=== PATIENT | female | born 1945 | race Caucasian/White ===

== ENCOUNTER 2018-03-17 12:16 | Observation (INO) ==
[2018-03-17] MEDS ORDERED: Aspirin 81 MG TAB.CHEW PO ONE (12:33)
[2018-03-17] MEDS: Nitroglycerin 0.4 MG TAB.SUBL SL ONE ×2 (13:06→13:49)
[2018-03-17 13:07] LABS: Basophils % 0.7 %; Eosinophils # 0.2 K/mcL (0.0-0.6); Hematocrit 43.3 % (35.3-44.9); Hemoglobin 15.1 g/dL (11.5-15.4); Immature Granulocytes % 0.2 % (0-4); Lymphocytes # 1.6 K/mcL (0.6-4.6); Lymphocytes % 29.1 %; Mean Corpuscular HGB Conc 34.9 g/dL (31.6-35.5); Mean Corpuscular Hemoglobin 32.2 pg (28.0-33.3); Mean Corpuscular Volume 92.3 fL (83.0-100.0); Mean Platelet Volume 9.8 fL (9.4-12.4); Monocytes # 0.5 K/mcL (0.0-1.3); Monocytes % 9.6 %; Neutrophils # 3.1 K/mcL (1.6-8.9); Platelet Count 192 K/mcL (140-400); Red Blood Count 4.69 M/mcL (3.82-4.97); Red Cell Distribution Width 12.8 % (11.5-14.5); Segmented Neutrophils % 56.4 %
[2018-03-17 13:13] LABS: Prothrombin Time 10.4 Seconds (9.4-12.1)
[2018-03-17 13:16] LABS: Activated Partial Thrombo Time 28.5 Seconds (26.0-36.0)
--- NOTE | 2018-03-17 13:28 | Emergency Department Note ---
Disposition Clinical Impression: Elevated brain natriuretic peptide (BNP) level, Elevated blood pressure reading Chest pain Qualifiers: Chest pain type: unspecified Qualified Code(s): R07.9 - Chest pain, unspecified Disposition: Admitted As Inpatient Condition: Good Chest Pain HPI - General Chief Complaint: ED Chest Pain Stated Complaint: chest pain Time Seen by Provider: 03/17/18 12:23 Source: patient Mode of arrival: wheelchair Limitations: no limitations Vital Signs Reviewed: Yes Nursing Notes Reviewed: Yes - History of Present Illness HPI Narrative: 72-year-old female past medical history of congestive heart failure with pacemaker placement, diabetes, hypertension, hyperlipidemia who presents from the cardiology office due to chest pain. Patient reports intermittent chest pain for the last 3 weeks. States it lasts for roughly 15-20 minutes at a time. No inciting events. It usually goes away on its own. No associated symptoms when she is experiencing pain. Denies any trauma. Reports she had a prior left heart catheterization roughly 5 years ago that was clean. Denies any recent illnesses. States her blood pressure has been high at home. She was on to report that she has felt like she is going to fall at home where she will feel like she is going to go forward or back. She did fall in her shower 3 weeks ago injuring her left upper extremity. She takes an aspirin daily no other anticoagulants. Cardiology evaluated the patient in the office this morning and sent her here for evaluation. Pt complaint: chest pain Onset (ago): week(s) Duration: intermittent Onset: during rest Pain Location: left chest Severity: mild Severity scale (1-10): 4 Quality: sharp Pain Radiation: none Improves with: nothing Worsens with: nothing Associated symptoms: Denies: nausea, vomiting, diaphoresis, dyspnea Treatments prior to arrival chest pain: aspirin, nitroglycerin - Related Data On Oral Contraceptives: No Home Medications Medication Instructions Recorded Confirmed Aspirin [Lo-Dose Aspirin EC] 81 mg PO DAILY 03/17/18 03/17/18 BuPROPion XL (24 HR) [Wellbutrin 300 mg PO DAILY 03/17/18 03/17/18 XL] Cholecalciferol (D-3) [Vitamin D] 1,000 unit PO DAILY 03/17/18 03/17/18 Escitalopram [Lexapro] 20 mg PO DAILY 03/17/18 03/17/18 Isosorbide MONOnitrate [Isosorbide 120 mg PO DAILY 03/17/18 03/17/18 Mononitrate ER] Lactobacillus Acidophilus 1 mg PO BID 03/17/18 03/17/18 [Acidophilus Probiotic] Lisinopril [Zestril] 40 mg PO BID 03/17/18 03/17/18 Metoprolol [Lopressor] 50 mg PO BID 03/17/18 03/17/18 Montelukast [Singulair] 10 mg PO DAILY 03/17/18 03/17/18 Nabumetone [Relafen] 500 mg PO BID 03/17/18 03/17/18 Omeprazole [PriLOSEC] 20 mg PO DAILY 03/17/18 03/17/18 Simvastatin [Zocor] 40 mg PO HS 03/17/18 03/17/18 Trazodone HCl 150 mg PO HS 03/17/18 03/17/18 Vit A/Vit C/Vit E/Zinc/Copper 1 tab PO DAILY 03/17/18 03/17/18 [Preservision Areds Tablet] hydroCHLOROthiazide 25 mg PO DAILY 03/17/18 03/17/18 [Hydrochlorothiazide] metFORMIN [Glucophage] 250 mg PO BID 03/17/18 03/17/18 Allergies Allergy/AdvReac Type Severity Reaction Status Date / Time Nortriptyline Allergy Severe Swelling Verified 01/05/17 19:37 of Lip/Tongue/Throat All systems ED: reviewed and negative except as stated. 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) - Respiratory Respiratory exam: Present: normal lung sounds bilaterally - Cardiovascular Cardiovascular exam: Present: regular rate, normal rhythm, normal heart sounds - Abdominal Exam Abdominal exam: Present: soft, Non-Tender. Absent: tenderness - Extremities Exam Extremities exam: Present: normal inspection, full ROM - Expanded Upper Extremity Exam Shoulder exam: Present: normal inspection, full ROM Arm exam: Present: normal inspection, full ROM Elbow exam: Present: normal inspection, full ROM Forearm/Wrist exam: Present: normal inspection, full ROM Hand exam: Present: normal inspection, full ROM - Expanded Lower Extremity Exam Hip/Pelvis exam: Present: normal inspection, full ROM Upper leg exam: Present: normal inspection, full ROM Knee exam: Present: normal inspection, full ROM Lower leg exam: Present: normal inspection, full ROM Ankle exam: Present: normal inspection, full ROM Foot/toe exam: Present: normal inspection, full ROM - Neurological Exam Neurological exam: Present: alert, other (GCS 15.) - Skin Skin exam: Present: warm, dry Course Course Narrative: Patient seen and examined. Some of her pain is reproducible however she reports he does not exactly feel like what she has been experiencing. We will get an EKG, chest x-ray, labs including troponin. Patient already received aspirin previously. Nitroglycerin of her pain recurs. We will likely have discussed with cardiology however she will require admission to the hospital for further evaluation. - Reevaluation(s) Reevaluation #1: Discussed results of imaging and labs with the patient. She did have recurrence of chest pain and was given 1 nitroglycerin. Reports her pain is now a 2 and was previously a 5. She is agreeable with being admitted to the hospital. 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 Although her symptoms are somewhat reproducible she also has elements of her history they are not reproducible today. She had a fall of an unknown etiology previously. Still feels like she is going to fall when she is on her feet. Her EKG here shows deep T waves in the anterior leads however cardiology had reported an sign off that this was unchanged from her EKG in January which I do not have access to. Labs and x-ray reviewed with the first negative troponin. Patient received nitroglycerin here with improvement of her pain. She is admitted to the hospitalist service for further evaluation. - Lab Data Lab results reviewed: Yes I reviewed the patient's lab results. Result diagrams: 03/17/18 12:47 03/17/18 12:47 Lab Results 03/17/18 03/17/18 03/17/18 Range/Units 12:47 12:47 12:47 WBC 5.5 (4.3-11.1) K/mcL RBC 4.69 (3.82-4.97) M/mcL Hgb 15.1 (11.5-15.4) g/dL Hct 43.3 (35.3-44.9) % MCV 92.3 (83.0-100.0) fL MCH 32.2 (28.0-33.3) pg MCHC 34.9 (31.6-35.5) g/dL RDW 12.8 (11.5-14.5) % Plt Count 192 (140-400) K/mcL MPV 9.8 (9.4-12.4) fL Immature Gran % 0.2 (0-4) % Seg Neutrophils % 56.4 % Lymphocytes % 29.1 % Monocytes % 9.6 % Eosinophils % 4.0 % Basophils % 0.7 % Neutrophils # 3.1 (1.6-8.9) K/mcL Lymphocytes # 1.6 (0.6-4.6) K/mcL Monocytes # 0.5 (0.0-1.3) K/mcL Eosinophils # 0.2 (0.0-0.6) K/mcL Basophils # 0.0 (0.0-0.2) K/mcL PT 10.4 (9.4-12.1) Seconds INR 1.0 APTT 28.5 (26.0-36.0) Seconds Sodium (136-145) mEq/L Potassium (3.5-5.1) mEq/L Chloride (98-107) mEq/L Carbon Dioxide (23-29) mEq/L BUN (8-23) mg/dL Creatinine (0.60-1.20) mg/dL Est GFR ( Amer) (> 60) Est GFR (Non-Af Amer) (> 60) BUN/Creatinine Ratio (6-26) Glucose (70-105) mg/dL Calculated Osmolality (280-300) Calcium (8.6-10.3) mg/dL Troponin I (< 0.04) ng/mL B-Natriuretic Peptide 110 H (Less than 100) pg/mL 03/17/18 Range/Units 12:47 WBC (4.3-11.1) K/mcL RBC (3.82-4.97) M/mcL Hgb (11.5-15.4) g/dL Hct (35.3-44.9) % MCV (83.0-100.0) fL MCH (28.0-33.3) pg MCHC (31.6-35.5) g/dL RDW (11.5-14.5) % Plt Count (140-400) K/mcL MPV (9.4-12.4) fL Immature Gran % (0-4) % Seg Neutrophils % % Lymphocytes % % Monocytes % % Eosinophils % % Basophils % % Neutrophils # (1.6-8.9) K/mcL Lymphocytes # (0.6-4.6) K/mcL Monocytes # (0.0-1.3) K/mcL Eosinophils # (0.0-0.6) K/mcL Basophils # (0.0-0.2) K/mcL PT (9.4-12.1) Seconds INR APTT (26.0-36.0) Seconds Sodium 142 (136-145) mEq/L Potassium 3.8 (3.5-5.1) mEq/L Chloride 104 (98-107) mEq/L Carbon Dioxide 33 H (23-29) mEq/L BUN 26 H (8-23) mg/dL Creatinine 0.75 (0.60-1.20) mg/dL Est GFR ( Amer) > 60 (> 60) Est GFR (Non-Af Amer) > 60 (> 60) BUN/Creatinine Ratio 35 H (6-26) Glucose 79 (70-105) mg/dL Calculated Osmolality 298 (280-300) Calcium 9.4 (8.6-10.3) mg/dL Troponin I < 0.03 (< 0.04) ng/mL B-Natriuretic Peptide (Less than 100) pg/mL - Radiology Data Radiology results reviewed: Yes I reviewed the patient's radiology results. Chest X-Ray 03/17/18 12:33 IMPRESSION: 1. No active pulmonary disease. D/ / Rikki Jackson MD / Rikki Jackson MD Interpreting Provider: Rikki Jackson MD - EKG Data EKG attestation: Yes I reviewed and interpreted this EKG. EKG results narrative: EKG demonstrates sinus rhythm with a rate of 69 bpm. Normal axis. First- degree block with PA interval of 249. Other intervals within normal limits. Anteriorly T-wave inversions in leads V1 through V4 as well as lead 3 and aVF that appear new from her prior EKG on 08/09/15 however this was a paced EKG. No gross ST elevations or depressions. Repeat EKG demonstrates sinus rhythm with first-degree AV block with a rate of 69 bpm. Prolonged PA interval of 250. QRS ration 121. Continue T-wave inversions in leads V1 through V4 as well as lead 3 and aVF. No gross ST elevations or depressions. No changes from prior EKG today. Heart Score - Score History: Moderately Suspicious EKG: Non Specific repolarisation Disturbance Age: Greater than 65 Risk Factors: 1-2 risk factors Troponin: Less than normal limit HEART Score Total: 5 S.B.A.R. - S.B.A.R. Situation: Demographics, MOA Background: Presenting Complaint, Relevant PMH, Meds, & Allergies Assessment: Course and respsone to treatment, Exam Concerns, Patient/Family Expectation, Pertinant Lab Results Recommendation: Barrier(s) to disposition, Recommendation based on pending studies, treatments, or consults Abdulkadir Report Given to: Johnny Panchal Repor Time: 15:20
[2018-03-17 13:29] LABS: BUN/Creatinine Ratio 35 (6-26); Blood Urea Nitrogen 26 mg/dL (8-23); Calcium 9.4 mg/dL (8.6-10.3); Carbon Dioxide 33 mEq/L (23-29); Chloride 104 mEq/L (98-107); Glucose 79 mg/dL (70-105); Osmolality,Calculated 298 (280-300); Potassium 3.8 mEq/L (3.5-5.1); Sodium 142 mEq/L (136-145); Troponin I < 0.03 ng/mL (< 0.04); eGFR For African Americans > 60 (> 60); eGFR For Non-African Americans > 60 (> 60)
--- NOTE | 2018-03-17 16:00 | Emergency Department Note ---
Disposition Clinical Impression: Elevated brain natriuretic peptide (BNP) level, Elevated blood pressure reading Chest pain Qualifiers: Chest pain type: unspecified Qualified Code(s): R07.9 - Chest pain, unspecified Disposition: Admitted As Inpatient Condition: Good General Adult HPI - General Chief complaint: ED Chest Pain Stated complaint: chest pain Time Seen by Provider: 03/17/18 12:23 Source: patient Mode of arrival: wheelchair Limitations: no limitations - History of Present Illness Pain Scale: 0 - Related Data Home Medications Medication Instructions Recorded Confirmed Aspirin [Lo-Dose Aspirin EC] 81 mg PO DAILY 03/17/18 03/17/18 BuPROPion XL (24 HR) [Wellbutrin 300 mg PO DAILY 03/17/18 03/17/18 XL] Cholecalciferol (D-3) [Vitamin D] 1,000 unit PO DAILY 03/17/18 03/17/18 Escitalopram [Lexapro] 20 mg PO DAILY 03/17/18 03/17/18 Isosorbide MONOnitrate [Isosorbide 120 mg PO DAILY 03/17/18 03/17/18 Mononitrate ER] Lactobacillus Acidophilus 1 mg PO BID 03/17/18 03/17/18 [Acidophilus Probiotic] Lisinopril [Zestril] 40 mg PO BID 03/17/18 03/17/18 Metoprolol [Lopressor] 50 mg PO BID 03/17/18 03/17/18 Montelukast [Singulair] 10 mg PO DAILY 03/17/18 03/17/18 Nabumetone [Relafen] 500 mg PO BID 03/17/18 03/17/18 Omeprazole [PriLOSEC] 20 mg PO DAILY 03/17/18 03/17/18 Simvastatin [Zocor] 40 mg PO HS 03/17/18 03/17/18 Trazodone HCl 150 mg PO HS 03/17/18 03/17/18 Vit A/Vit C/Vit E/Zinc/Copper 1 tab PO DAILY 03/17/18 03/17/18 [Preservision Areds Tablet] hydroCHLOROthiazide 25 mg PO DAILY 03/17/18 03/17/18 [Hydrochlorothiazide] metFORMIN [Glucophage] 250 mg PO BID 03/17/18 03/17/18 Allergies Allergy/AdvReac Type Severity Reaction Status Date / Time Nortriptyline Allergy Severe Swelling Verified 01/05/17 19:37 of Lip/Tongue/Throat Constitutional: Denies: fever Cardiovascular: Reports: chest pain Respiratory: Denies: cough, dyspnea Gastrointestinal: Denies: abdominal pain, nausea, vomiting Past Medical History - Past Medical History Medical history: Reports: arthritis, diabetes, GERD, hyperlipidemia, hypertension, other Surgical history: Reports: appendectomy, cholecystectomy, hysterectomy, orthopedic, other, pacemaker/AICD, other Psychiatric history: Reports: anxiety, depression 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 SYSTEMS 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: Reports: no JUNIOR SYSTEMS 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 - Social History Smoking Status: Never smoker Smokeless Tobacco Status: No Alcohol use: Reports: none Drug use: Reports: none Physical Exam - General Limitations: no limitations General appearance: alert, in no apparent distress Course Vital Signs Temperature 97.5 F L 03/17/18 12:19 Pulse Rate 69 03/17/18 12:19 Respiratory Rate 16 03/17/18 12:19 Blood Pressure 200/90 03/17/18 12:19 O2 Sat by Pulse Oximetry 97 03/17/18 12:19 Temperature 98.2 F 03/17/18 18:41 Pulse Rate 70 03/17/18 18:41 Respiratory Rate 16 03/17/18 18:41 Blood Pressure 152/79 03/17/18 18:41 O2 Sat by Pulse Oximetry 93 03/17/18 18:41 Oxygen Delivery Oxygen Delivery Room Air Medical Decision Making - Lab Data Result diagrams: 03/17/18 12:47 03/17/18 12:47 Lab Results 03/17/18 03/17/18 03/17/18 Range/Units 12:47 12:47 12:47 WBC 5.5 (4.3-11.1) K/mcL RBC 4.69 (3.82-4.97) M/mcL Hgb 15.1 (11.5-15.4) g/dL Hct 43.3 (35.3-44.9) % MCV 92.3 (83.0-100.0) fL MCH 32.2 (28.0-33.3) pg MCHC 34.9 (31.6-35.5) g/dL RDW 12.8 (11.5-14.5) % Plt Count 192 (140-400) K/mcL MPV 9.8 (9.4-12.4) fL Immature Gran % 0.2 (0-4) % Seg Neutrophils % 56.4 % Lymphocytes % 29.1 % Monocytes % 9.6 % Eosinophils % 4.0 % Basophils % 0.7 % Neutrophils # 3.1 (1.6-8.9) K/mcL Lymphocytes # 1.6 (0.6-4.6) K/mcL Monocytes # 0.5 (0.0-1.3) K/mcL Eosinophils # 0.2 (0.0-0.6) K/mcL Basophils # 0.0 (0.0-0.2) K/mcL PT 10.4 (9.4-12.1) Seconds INR 1.0 APTT 28.5 (26.0-36.0) Seconds Sodium (136-145) mEq/L Potassium (3.5-5.1) mEq/L Chloride (98-107) mEq/L Carbon Dioxide (23-29) mEq/L BUN (8-23) mg/dL Creatinine (0.60-1.20) mg/dL Est GFR ( Amer) (> 60) Est GFR (Non-Af Amer) (> 60) BUN/Creatinine Ratio (6-26) Glucose (70-105) mg/dL Calculated Osmolality (280-300) Calcium (8.6-10.3) mg/dL Troponin I (< 0.04) ng/mL B-Natriuretic Peptide 110 H (Less than 100) pg/mL 03/17/18 Range/Units 12:47 WBC (4.3-11.1) K/mcL RBC (3.82-4.97) M/mcL Hgb (11.5-15.4) g/dL Hct (35.3-44.9) % MCV (83.0-100.0) fL MCH (28.0-33.3) pg MCHC (31.6-35.5) g/dL RDW (11.5-14.5) % Plt Count (140-400) K/mcL MPV (9.4-12.4) fL Immature Gran % (0-4) % Seg Neutrophils % % Lymphocytes % % Monocytes % % Eosinophils % % Basophils % % Neutrophils # (1.6-8.9) K/mcL Lymphocytes # (0.6-4.6) K/mcL Monocytes # (0.0-1.3) K/mcL Eosinophils # (0.0-0.6) K/mcL Basophils # (0.0-0.2) K/mcL PT (9.4-12.1) Seconds INR APTT (26.0-36.0) Seconds Sodium 142 (136-145) mEq/L Potassium 3.8 (3.5-5.1) mEq/L Chloride 104 (98-107) mEq/L Carbon Dioxide 33 H (23-29) mEq/L BUN 26 H (8-23) mg/dL Creatinine 0.75 (0.60-1.20) mg/dL Est GFR ( Amer) > 60 (> 60) Est GFR (Non-Af Amer) > 60 (> 60) BUN/Creatinine Ratio 35 H (6-26) Glucose 79 (70-105) mg/dL Calculated Osmolality 298 (280-300) Calcium 9.4 (8.6-10.3) mg/dL Troponin I < 0.03 (< 0.04) ng/mL B-Natriuretic Peptide (Less than 100) pg/mL Attestation Statement - Attestation Attestation: I examined this patient and my medical decision-making was reviewed with the Resident Physician, Dr. Donis. I agree with the documented findings, disposition and treatment plan as described except to the extent set forth below. Patient is a 72-year-old white female with a history of hypertension, diabetes, hyperlipidemia, and CAD who presents to the emergency department sent from her legal billing clerk's office for chest pain. Patient has been having intermittent chest pain for the past 3 weeks with no aggravating or alleviating factors. Patient was being seen by her legal billing clerk today and complained of some left- sided chest discomfort. Patient states his been coming intermittently with no associated symptoms and lasting anywhere from 15-20 minutes and then spontaneously resolving. Patient also with elevated blood pressure. Patient's legal billing clerk sent her here for evaluation, they did do an EKG in the office which they report was unchanged from a prior EKG they had from January. I agree with patient's physical exam findings as documented. Patient's hypertensive on arrival but in no acute distress. Patient's EKG on arrival shows ischemic changes but unchanged from recent EKG. Patient sinus rhythm. Patient received aspirin and nitroglycerin which did help with her chest pain. Patient's lab evaluation with negative troponin no significant metabolic derangements. Chest x-rays unremarkable. Patient will be admitted for further evaluation and management of chest pain. Case was discussed with hospitalist to accept the patient for admission. Blood pressure improved at this time following nitroglycerin and patient remains pain-free.
[2018-03-17] MEDS ORDERED: Acetaminophen 325 MG TABLET PO PRN (17:59)
[2018-03-17] MEDS ORDERED: Naloxone 0.4 MG/ML INJ IVP PRN (17:59)
[2018-03-17] MEDS ORDERED: *HR* HYDROcodone/Acet 5/325 mg TABLET PO PRN (17:59)
[2018-03-17] MEDS ORDERED: *HR* Dextrose 50 % in Water (Syg) 50 ML SYRINGE IVP PRN (18:05)
[2018-03-17] MEDS ORDERED: Dextrose Gel 15 GM/37.5 ML TUBE PO PRN ×2 (18:05)
[2018-03-17] MEDS ORDERED: D5% in Water 1,000 ML IVC PRN (18:05)
[2018-03-17] MEDS ORDERED: Nitroglycerin 0.4 MG TAB.SUBL SL PRN (18:06)
[2018-03-17] MEDS ORDERED: GI Cocktail 40 ML EACH PO ONE (18:07)
[2018-03-17] MEDS ORDERED: Ondansetron 4 MG/2 ML VIAL IVP PRN (18:14)
--- NOTE | 2018-03-17 18:58 | Event Note ---
Date of Encounter: 03/17/18 Time of Encounter: 18:00 Discussed with [facility] and agree with assessment and plan Patient is a 72-year-old female with past medical history significant for pacemaker/AICD placement who presents from drive thru order taker's office due to chest pain. On physical examination, cardiovascular exam revealed regular rate and rhythm with no murmurs rubs or gallops and patient was in not acute distress 1. Chest pain ACS rule out with following serial cardiac biomarkers and monitor on telemetry Nuclear medicine stress test also ordered
--- NOTE | 2018-03-17 19:40 | Internal Med History&Physical ---
Date of Encounter: 03/17/18 Time of Encounter: 17:00 Internal Medicine - H&P: HPI Chief complaint: CP Admitted From: Emergency Dept Plans for Post Hospital Care: Home History of present illness: Ms. Liang is a 72 year old female w/PMH of arthritis, diabetes controlled with oral anti-hyperglycemic medications, GERD, HLD, and HTN presents from the ED with chief complaint of chest pain that has been present intermittently for the past 3 weeks. Patient reports she had scheduled appointment with Dr. Cantrell today and was sent to ED due to symptoms. Patient reports pain in center of chest with radiation to left breast, left jaw, left arm, and left neck. Reports symptoms improve with rest. No aggravating factors. Denies shortness of breath, nausea, vomiting, reports heart catheter approximately 5 years ago without stent placement. States she fell in the shower at home and injured LUE. Reports increasing HTN and unsteadiness w/ambulation but denies recent illness, fever, chills, nausea, vomiting, shortness of breath, cough, chest congestion, changes in vision, headache, palpitations, unusual bleeding, abdominal pain, diarrhea, constipation, numbness, tingling, dizziness, lightheadedness, pre-syncope, or syncope. Past Med Surg Social Fam HX - Past Medical History Source: patient, old records reviewed, obtained from family Medical history: arthritis, diabetes, GERD, hyperlipidemia, hypertension, other Psychiatric history: anxiety, depression - Past Surgical History Surgical History: appendectomy, cholecystectomy, hysterectomy, orthopedic, other , pacemaker/AICD, other - Social History Smoking Status: Never smoker Smokeless Tobacco Status: No Alcohol use: none Drug use: none Current living situation: Home, With Family Activity Level: Independent ambulation Recent Out of Country Travel Within the Last 8 Weeks: No Exposure or Possible Exposure to Illness During Travel: No - Family History Mother Race: Family Member Ethnicity: Non- Living Status: Age at : 72 Cause of : Old age/Flu Father Race: Family Member Ethnicity: Non- Living Status: Age at : 53 Cause of : Cirrhosis Hx Family Endocrine Disorder: Yes (Cirrhosis) Sister Race: Family Member Ethnicity: Non- Living Status: Age at : 74 Cause of : Cancers Hx Family Cancer: Yes (Uterine, Breast, Liver) Internal Medicine - H&P: Meds Aspirin [Lo-Dose Aspirin EC] 81 mg PO DAILY 03/17/18 [History] BuPROPion XL (24 HR) [Wellbutrin XL] 300 mg PO DAILY 03/17/18 [History] Cholecalciferol (D-3) [Vitamin D] 1,000 unit PO DAILY 03/17/18 [History] Escitalopram [Lexapro] 20 mg PO DAILY 03/17/18 [History] Isosorbide MONOnitrate [Isosorbide Mononitrate ER] 120 mg PO DAILY 03/17/18 [ History] Lactobacillus Acidophilus [Acidophilus Probiotic] 1 mg PO BID 03/17/18 [History] Lisinopril [Zestril] 40 mg PO BID 03/17/18 [History] Metoprolol [Lopressor] 50 mg PO BID 03/17/18 [History] Montelukast [Singulair] 10 mg PO DAILY 03/17/18 [History] Nabumetone [Relafen] 500 mg PO BID 03/17/18 [History] Omeprazole [PriLOSEC] 20 mg PO DAILY 03/17/18 [History] Simvastatin [Zocor] 40 mg PO HS 03/17/18 [History] Trazodone HCl 150 mg PO HS 03/17/18 [History] Vit A/Vit C/Vit E/Zinc/Copper [Preservision Areds Tablet] 1 tab PO DAILY [History] hydroCHLOROthiazide [Hydrochlorothiazide] 25 mg PO DAILY 03/17/18 [History] metFORMIN [Glucophage] 250 mg PO BID 03/17/18 [History] 3 Allergy/AdvReac Type Severity Reaction Status Date / Time Nortriptyline Allergy Severe Swelling Verified 01/05/17 19:37 of Lip/Tongue/Throat All Systems PM: A 10-system review of systems was performed and is negative for pertinent findings except as documented above in the HPI. - Constitutional Constitutional: as per HPI, falls, no chills, no fever(s), no night sweats - EENT Eyes: no change in vision, no discharge, no pain, no photophobia Ears: no ear discharge, no ear pain, no tinnitus Nose, mouth and throat: no dysphagia, no nasal discharge, no neck pain, no sore throat - Breasts Breasts: as per HPI - Cardiovascular Cardiovascular ROS IM: as per HPI, chest pain, no diaphoresis, no dyspnea, no lightheadedness, no palpitations, no syncope - Respiratory Respiratory: no cough, no dyspnea, no wheezing, no excessive phlegm production - Gastrointestinal Gastrointestinal: no abdominal pain, no diarrhea, no hematemesis, no hematochezia, no melena, no nausea, no vomiting - Genitourinary Genitourinary: no change in urinary stream, no dysuria, no flank pain, no hematuria Menstruation: as per HPI, post hysterectomy - Musculoskeletal Musculoskeletal ROS IM: no numbness, no tingling - Integumentary Integumentary IM: no rash, no unusual bruising - Neurological Neurological ROS: no confusion, no convulsions, no focal weakness, no numbness, no tingling, no tremor(s) - Psychiatric Psychiatric: as per HPI, anxiety, depression - Endocrine Endocrine IM: as per HPI - Hematologic/Lymphatic Hematologic/Lymphatic: no easy bruising - Allergic/Immunologic Allergic/Immunologic: as per HPI - Constitutional Vitals: Temp Pulse Resp BP Pulse Ox 98.2 F 70 16 152/79 93 03/17/18 18:41 03/17/18 18:41 03/17/18 18:41 03/17/18 18:41 03/17/18 18:41 General appearance: Present: cooperative, mild distress (CP), A&O X 3, pleasant , obese, answers questions appropriately - Head Head exam: Present: atraumatic, normocephalic - Eye Eye exam: Present: PERRL, conjuntiva pink, sclera anicteric Pupils: Present: PERRL - ENT ENT exam: Present: normal exam - Neck Neck exam general surgery: Present: normal inspection, supple, trachea midline. Absent: lymphadenopathy - Respiratory Respiratory exam: Present: CTAB. Absent: accessory muscle use, rales, rhonchi, wheezes - Cardiovascular Additional comments: Paced rhythm from pacemaker placed in 1979. - GI/Abdominal GI/Abdominal exam: Present: normal bowel sounds, soft, no peritoneal signs. Absent: distended, tenderness - Rectal Rectal exam: Present: deferred - Additional comments: exam deferred. - Extremities Exam Extremities exam: Present: warm, radial pulses palpable and symmetrical. Absent : calf tenderness, cyanotic, pedal edema - Back Exam Back exam: Present: normal inspection - Neurological Exam Neurological exam: Present: CN II-XII intact, oriented X3, no focal deficits. Absent: pronater drift, facial droop, speech deficit - Psychiatric Psychiatric exam: Present: anxious - Skin Skin exam: Present: dry, intact Internal Med - H&P Results - Labs CBC & Chem 7: 03/17/18 12:47 03/17/18 12:47 Labs: Cardiac Enzymes 03/17/18 Range/Units 18:21 Troponin I < 0.03 (< 0.04) ng/mL - EKG Data Prior EKG available for review: no Interpretation IM: suggestive of ischemia EKG comments: 03/17/18 19:44 EKG dated 03/17/18 shows electronic atrial pacemaker, left ventricular hypertrophy and ST-T change, possible lateral myocardial infarction of indeterminate age. - Diagnostic Studies Chest x-ray Additional comments: Impressions Chest X-Ray 03/17/18 12:33 IMPRESSION: 1. No active pulmonary disease. D/ / Rikki Jackson MD / Rikki Jackson MD Interpreting Provider: Rikki Jackson MD - Assessment and plan (1) Chest pain Current Visit: Yes Status: Acute Assessment and plan: Acute on chronic CP for the past three weeks she describes as intermittent with pain in center of chest with radiation to left breast, left jaw, left arm, and left neck. Stress versus GERD versus cardiac. Reports symptoms improve with rest. No aggravating factors. Denies shortness of breath, nausea, vomiting, reports heart catheter approximately 5 years ago without stent placement. Initial troponin <0.03. Trend 2. Continue patient's Zocor and 81 mg aspirin. Nothing by mouth at midnight for a.m. stress test if troponins remain WNL. EKG today shows electronic atrial pacemaker, left ventricular hypertrophy, ST-T change, and possible lateral myocardial infarction of indeterminate age. Continuous cardiac telemetry. Supplemental O2 with titration and SPO2 monitoring when necessary. Nitro SL PRN. Continue patient's HTN and HLD medications. Consider cardiology consult if troponins and/or nuclear stress test results abnormal. Pt. discussed w/Dr. Silveira who agrees w/plan of care. Pt. is moderate risk for further morbidity and cardiac event based on current sx and intermittent CP for 3 weeks, hx; and risk factors of DM, HTN, HLD, and obesity. Observation. Qualifiers: Chest pain type: other chest pain Qualified Code(s): R07.89 - Other chest pain; R07.8 - Other chest pain (2) Elevated brain natriuretic peptide (BNP) level Current Visit: Yes Status: Acute Assessment and plan: Acutely elevated BNP of 110 on admission. No hx or dx of CHF. No pedal edema or SOB/dyspnea. Continue pts. hydrochlorothiazide. IV fluids to be used judiciously if warranted. (3) Diabetes Current Visit: Yes Status: Chronic Assessment and plan: Hx of chronic DM controlled by oral anti-hyperglycemic medications. Hold oral meds and administer low-dose correction insulin sliding scale with hypoglycemic protocol. A1c in a.m. labs. BG checks before meals at bedtime. Qualifiers: Diabetes mellitus type: type 2 Diabetes mellitus detention insulin use: without manager long term care use Diabetes mellitus complication status: with unspecified complications Qualified Code(s): E11.8 - Type 2 diabetes mellitus with unspecified complications (4) GERD (gastroesophageal reflux disease) Current Visit: Yes Status: Chronic Assessment and plan: Hx of chronic GERD that is not well-controlled d/t stress/anxiety. IVP Zofran 4 mg Q6HR PRN for N/V. IVP Protonix 40 mg BID. GI cocktail once. Qualifiers: Esophagitis presence: esophagitis presence not specified Qualified Code(s) : K21.9 - Gastro-esophageal reflux disease without esophagitis (5) HTN (hypertension) Current Visit: Yes Status: Chronic Assessment and plan: Hx of chronic HTN. Monitor pt. and VS. Continue pts. Lopressor, lisinopril, hydrochlorothiazide, and isosorbide. Qualifiers: Hypertension type: essential hypertension Qualified Code(s): I10 - Essential (primary) hypertension (6) HLD (hyperlipidemia) Current Visit: Yes Status: Chronic Assessment and plan: Hx of chronic HLD. Lipid panel in a.m. labs. Continue pts. Zocor. Qualifiers: Hyperlipidemia type: pure hypercholesterolemia Qualified Code(s): E78.00 - Pure hypercholesterolemia, unspecified; E78.0 - Pure hypercholesterolemia (7) Anxiety and depression Current Visit: Yes Status: Chronic Assessment and plan: Hx of chronic anxiety and depression. Pt. reports many stressors currently in her life, especially sick spouse whom she worries about constantly. Continue pts. Lexapro. Add Ativan PO 1 mg Q8HR PRN. Monitor. (8) Arthritis Current Visit: Yes Status: Chronic Assessment and plan: Hx of chronic arthritis. Continue pts. Trazodone and Relafen. (9) DVT prophylaxis Current Visit: Yes Status: Acute Assessment and plan: Heparin 5,000 units SQ Q8HR PRN for DVT prophylaxis. Monitor pt. for signs of bleeding. - Time Spent With Patient Total time spent is greater than 50% in coordination of care (as documented) at patient's floor/unit and/or counseling patient: Greater than 35 minutes
[2018-03-17] MEDS ORDERED: *HR* LORazepam 2 MG/ML VIAL IVP PRN (19:52)
[2018-03-17] MEDS ORDERED: traZODone 50 MG TABLET PO SCH (21:00)
[2018-03-17] MEDS ORDERED: Insulin LISPRO 300 UNITS/3 ML VIAL SQ SCH (21:00)
[2018-03-17] MEDS: *HR* Heparin 5,000 UNIT/ML VIAL SQ SCH (21:53)
[2018-03-17] MEDS: Lactobacillus 1 EACH CAP.SPRINK PO SCH (21:53)
[2018-03-17] MEDS: Lisinopril 20 MG TABLET PO SCH (21:53)
[2018-03-18 01:16] LABS: Basophils # 0.1 K/mcL (0.0-0.2); Eosinophils # 0.2 K/mcL (0.0-0.6); Eosinophils % 4.7 %; Hematocrit 38.4 % (35.3-44.9); Hemoglobin 13.8 g/dL (11.5-15.4); Immature Granulocytes % 0.2 % (0-4); Lymphocytes # 1.8 K/mcL (0.6-4.6); Lymphocytes % 37.7 %; Mean Corpuscular HGB Conc 35.9 g/dL (31.6-35.5); Mean Corpuscular Hemoglobin 32.9 pg (28.0-33.3); Mean Corpuscular Volume 91.6 fL (83.0-100.0); Mean Platelet Volume 9.9 fL (9.4-12.4); Monocytes # 0.5 K/mcL (0.0-1.3); Monocytes % 10.9 %; Neutrophils # 2.2 K/mcL (1.6-8.9); Nucleated Red Blood Cells 0.4 /100 WBC (0); Platelet Count 173 K/mcL (140-400); Red Blood Count 4.19 M/mcL (3.82-4.97); Red Cell Distribution Width 12.6 % (11.5-14.5); Segmented Neutrophils % 45.5 %
[2018-03-18 01:36] LABS: Alanine Aminotransferase 12 Units/L (7-52); Albumin 3.6 g/dL (3.5-5.7); Albumin/Globulin Ratio 2.1 (1.1-2.2); Alkaline Phosphatase 55 Units/L (34-104); Aspartate Amino Transferase 13 Units/L (13-39); BUN/Creatinine Ratio 32 (6-26); Bilirubin,Total 0.8 mg/dL (0.3-1.0); Blood Urea Nitrogen 21 mg/dL (8-23); Calcium 9.2 mg/dL (8.6-10.3); Carbon Dioxide 33 mEq/L (23-29); Chloride 105 mEq/L (98-107); Chol/HDL Ratio 3.6 (0-4.9); Cholesterol 139 mg/dL (< 200); Globulin 1.7 g/dL (2.4-3.5); Glucose 111 mg/dL (70-105); HDL Cholesterol 39 mg/dL (40-59); LDL Cholesterol,Calculated 34 mg/dL (0-99); Magnesium 1.9 mg/dL (1.6-2.6); Osmolality,Calculated 300 (280-300); Potassium 3.2 mEq/L (3.5-5.1); Sodium 143 mEq/L (136-145); Total Protein 5.3 g/dL (6.4-8.9); Triglycerides 329 mg/dL (< 150); eGFR For African Americans > 60 (> 60); eGFR For Non-African Americans > 60 (> 60)
[2018-03-18] MEDS ORDERED: Regadenoson 0.4 MG/5 ML SYRINGE IVP ONE (05:40)
[2018-03-18] MEDS: Pantoprazole 40 MG VIAL IVP SCH ×2 (05:52→16:48)
[2018-03-18] MEDS: *HR* Heparin 5,000 UNIT/ML VIAL SQ SCH ×2 (05:52→16:47)
[2018-03-18 08:38] LABS: Estimated Average Glucose 114 mg/dl; Hemoglobin A1C 5.6 %
[2018-03-18] MEDS ORDERED: Aspirin Enteric Coated 81 MG Tablet PO SCH (09:00)
[2018-03-18] MEDS ORDERED: hydroCHLOROthiazide 25 MG TABLET PO SCH (09:00)
[2018-03-18] MEDS ORDERED: Cholecalciferol (D-3) 1,000 UNIT TABLET PO SCH (09:00)
[2018-03-18] MEDS ORDERED: BuPROPion XL (24 HR) 150 MG TABLET PO SCH (09:00)
[2018-03-18] MEDS ORDERED: Isosorbide MONOnitrate (24 HR) 60 MG TAB.ER.24H PO SCH (09:00)
[2018-03-18] MEDS: Lactobacillus 1 EACH CAP.SPRINK PO SCH (10:06)
[2018-03-18] MEDS: Lisinopril 20 MG TABLET PO SCH (10:06)
[2018-03-18] MEDS: Insulin LISPRO 300 UNITS/3 ML VIAL SQ SCH ×3 (10:07→16:48)
--- NOTE | 2018-03-18 13:26 | Electrocardiograph Report ---
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
--- NOTE | 2018-03-18 15:17 | Electrocardiograph Report ---
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
[2018-03-18 15:29] VITALS: BP 132/66
--- NOTE | 2018-03-18 17:19 | Discharge Summary ---
- NOTES TO OUTPATIENT PROVIDER Notes to Outpatient Provider: nuclear cardiac stress test negative for ischema nad infarct Orders not resulted at time of discharge: Pending orders 03/18/18 06:00 NM kaycee perf SPECT multi [NM] Routine 03/19/18 04:00 Complete Blood Count [HEME] AM 0400 Comprehensive Metabolic Panel AM 0400 03/20/18 04:00 Complete Blood Count [HEME] AM 0400 Comprehensive Metabolic Panel AM 0400 03/21/18 04:00 Complete Blood Count [HEME] AM 0400 Comprehensive Metabolic Panel AM 0400 Date of Encounter: 03/18/18 Time of Encounter: 17:13 - Discharge Diagnosis (1) Chest pain Priority: Primary Status: Acute Qualifiers: Chest pain type: other chest pain Qualified Code(s): R07.89 - Other chest pain; R07.8 - Other chest pain (2) Elevated brain natriuretic peptide (BNP) level Priority: Secondary Status: Acute (3) Diabetes Priority: Secondary Status: Chronic Qualifiers: Diabetes mellitus type: type 2 Diabetes mellitus skilled nursing insulin use: without medical terminologist use Diabetes mellitus complication status: with unspecified complications Qualified Code(s): E11.8 - Type 2 diabetes mellitus with unspecified complications (4) GERD (gastroesophageal reflux disease) Priority: Secondary Status: Chronic Qualifiers: Esophagitis presence: esophagitis presence not specified Qualified Code(s) : K21.9 - Gastro-esophageal reflux disease without esophagitis (5) HTN (hypertension) Priority: Secondary Status: Chronic Qualifiers: Hypertension type: essential hypertension Qualified Code(s): I10 - Essential (primary) hypertension (6) HLD (hyperlipidemia) Priority: Secondary Status: Chronic Qualifiers: Hyperlipidemia type: pure hypercholesterolemia Qualified Code(s): E78.00 - Pure hypercholesterolemia, unspecified; E78.0 - Pure hypercholesterolemia (7) Anxiety and depression Priority: Secondary Status: Chronic (8) Arthritis Priority: Secondary Status: Chronic Hospital course: Ms. Liang is a 72 year old female past medical history of arthritis diabetes GERD hyperlipidemia hypertension Originally presented to [facility] ED with complaints of chest pain that have been ongoing intermittently for the past 3 weeks. She was seen by her export clerk prior to arrival advised patient to go to the ED for evaluation. Patient reports midsternal chest pain radiating to her left breast L left arm and left neck. Symptoms improved with rest no aggravating factors. Denies any shortness breath nausea vomiting she did have a heart Rate 5 years ago values stent placement. Patient is under a lot of stress taking care of her who is very ill. 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 Chest x-ray with no acute disease troponins are negative 3, EKG with no ST-T wave abnormalities. She did undergo a nuclear cardiac stress test which was negative for any ischemia or infarct. sales representative facility services did see the patient, was advised to contact [facility] nor to schedule appointment to determine patient's meets qualifications for home services. Patient denies any chest pain at this time is hemodynamically stable. I advised the patient to follow- up with her primary care physician as well as cardiology and continue with her home medications. Patient verbalized understanding patient is ready for discharge Discharge discussed with: patient - Time Spent with Patient Total time spent providing and/or coordinating discharge services: - Discharge Medications Home Medications: Aspirin [Lo-Dose Aspirin EC] 81 mg PO DAILY 03/17/18 [History] BuPROPion XL (24 HR) [Wellbutrin Xl] 300 mg PO DAILY 03/17/18 [History] Cholecalciferol (D-3) [Vitamin D] 1,000 unit PO DAILY 03/17/18 [History] Escitalopram [Lexapro] 20 mg PO DAILY 03/17/18 [History] Isosorbide MONOnitrate [Isosorbide Mononitrate ER] 120 mg PO DAILY 03/17/18 [ History] Lactobacillus Acidophilus [Acidophilus Probiotic] 1 mg PO BID 03/17/18 [History] Lisinopril [Zestril] 40 mg PO BID 03/17/18 [History] Metoprolol [Lopressor] 50 mg PO BID 03/17/18 [History] Montelukast [Singulair] 10 mg PO DAILY 03/17/18 [History] Nabumetone [Relafen] 500 mg PO BID 03/17/18 [History] Omeprazole [PriLOSEC] 20 mg PO DAILY 03/17/18 [History] Simvastatin [Zocor] 40 mg PO HS 03/17/18 [History] Trazodone HCl 150 mg PO HS 03/17/18 [History] Vit A/Vit C/Vit E/Zinc/Copper [Preservision Areds Tablet] 1 tab PO DAILY [History] hydroCHLOROthiazide [Hydrochlorothiazide] 25 mg PO DAILY 03/17/18 [History] metFORMIN [Glucophage] 250 mg PO BID 03/17/18 [History] Allergies/Adverse Reactions: 3 Allergy/AdvReac Type Severity Reaction Status Date / Time Nortriptyline Allergy Severe Swelling Verified 01/05/17 19:37 of Lip/Tongue/Throat Date of admission: 03/17/18 15:06 Primary care physician: Chris Christina Consults: 03/17/18 18:03 Consult to Geothermal Field Technician [CONS] Routine Reason for SW Consult: Please assess patient for possible home needs for post -discharge planning. Pt. is under a lot of stress d/t sick . Discharging clinician: Sandi Gomes - Constitutional Vitals: Temp Pulse Resp BP Pulse Ox 98.1 F 70 14 132/66 93 03/18/18 15:28 03/18/18 15:28 03/18/18 15:28 03/18/18 15:28 03/18/18 15:28 General appearance: Present: cooperative, A&O X 3, pleasant, obese, answers questions appropriately - Head Head exam: Present: atraumatic, normocephalic - Eye Eye exam: Present: PERRL, conjuntiva pink, sclera anicteric Pupils: Present: PERRL - Neck Neck exam general surgery: Present: supple, trachea midline. Absent: lymphadenopathy - Respiratory Respiratory exam: Present: CTAB. Absent: accessory muscle use, rales, rhonchi, wheezes - Cardiovascular Cardiovascular exam: Present: RRR, +S1, +S2. Absent: diastolic murmur, gallop, rubs, systolic murmur - GI/Abdominal GI/Abdominal exam: Present: normal bowel sounds, soft, no peritoneal signs. Absent: distended, tenderness - Extremities Exam Extremities exam: Present: warm, radial pulses palpable and symmetrical. Absent : calf tenderness, cyanotic, pedal edema - Neurological Exam Neurological exam: Present: CN II-XII intact, oriented X3, no focal deficits. Absent: pronater drift, facial droop, speech deficit - Skin Skin exam: Present: dry, intact - Patient Status Disposition: Home, Self-Care Condition: Good Functional capacity at discharge: independent ambulation Overall status at discharge: patient is back to baseline - Discharge Instructions Follow Up With: Chris Christina DO [Primary Care Provider] - Ronda Cantrell DO [Partnered Physician] - - Diet and Activity Activity: resume usual activities as tolerated Diet: low fat, low cholesterol
== END 2018-03-18 17:52 | disposition home or self-care (01) ==
LOC: EMEROO 12:16 → 3BNU 12:16
PROVIDERS: ADMIT Hospitalist; ATTEND Hospitalist

== ENCOUNTER 2018-09-18 09:28 | Inpatient (IN) ==
--- NOTE | 2018-09-18 10:27 | Emergency Department Note ---
Disposition Clinical Impression: Accelerated hypertension Fall Qualifiers: Encounter type: subsequent encounter Qualified Code(s): W19.XXXD - Unspecified fall, subsequent encounter Nasal fracture Qualifiers: Encounter type: initial encounter Fracture type: open Qualified Code(s): S02.2XXB - Fracture of nasal bones, initial encounter for open fracture Disposition: Admitted As Inpatient Condition: Good Referrals: Chris Christina DO [Primary Care Provider] - Forms: ED Satisfaction Letter Time of Disposition: 13:09 Fall HPI - General Chief Complaint: ED Fall Stated Complaint: fall Time Seen by Provider: 09/18/18 09:34 Source: patient, family (Daughter) Mode of arrival: ambulatory Limitations: no limitations Nursing Notes Reviewed: Yes Vital Signs Reviewed: Yes - History of Present Illness HPI Narrative: 73-year-old female history of hypertension presents emergency department with daughter after fall. Patient was going to [place] after going up a flight of stairs she took a step forward and fell. She fell on her face with the obvious deformity to her nose. No loss of consciousness reported. She is complaining of pain to her face. She supposed to use a walker but has not. She is also reported history of frequent falls. She notified her daughter today that she had recently fell out of the bed last night. She lives with her who is terminally ill. She denies any prodromal symptoms prior to the fall such as headache, chest pain, shortness of breath. She thinks is. Because of her unsteady gait which she has been recommended to use a walker. She takes a baby aspirin and denies any other anticoagulant use. Those noted that her blood pressure was significantly higher here. She states this is been ongoing issue for quite some time. Pt Subjective Complaint: fall - Related Data Home Medications Medication Instructions Recorded Confirmed Aspirin [Lo-Dose Aspirin EC] 81 mg PO DAILY 03/17/18 09/18/18 Cholecalciferol (D-3) [Vitamin D] 1,000 unit PO DAILY 03/17/18 09/18/18 Escitalopram [Lexapro] 20 mg PO DAILY 03/17/18 09/18/18 Isosorbide MONOnitrate [Isosorbide 150 mg PO DAILY 03/17/18 09/18/18 Mononitrate ER] Lactobacillus Acidophilus 1 mg PO BID 03/17/18 09/18/18 [Acidophilus Probiotic] Lisinopril [Zestril] 40 mg PO BID 03/17/18 09/18/18 Montelukast [Singulair] 10 mg PO DAILY 03/17/18 09/18/18 Nabumetone [Relafen] 500 mg PO BID 03/17/18 09/18/18 Omeprazole [PriLOSEC] 20 mg PO DAILY 03/17/18 09/18/18 Simvastatin [Zocor] 40 mg PO HS 03/17/18 09/18/18 Trazodone HCl 150 mg PO HS 03/17/18 09/18/18 Vit A/Vit C/Vit E/Zinc/Copper 1 tab PO DAILY 03/17/18 09/18/18 [Preservision Areds Tablet] metFORMIN [Glucophage] 250 mg PO BID 03/17/18 09/18/18 BuPROPion SR (12 HR) [Wellbutrin 150 mg PO DAILY 09/18/18 09/18/18 SR] Buspirone HCl [Buspar] 10 mg PO TID 09/18/18 09/18/18 Fluticasone Propionate Nasal 1 spr NS DAILY 09/18/18 09/18/18 [Flonase] Furosemide [Lasix] 20 mg PO BID 09/18/18 09/18/18 Metoprolol Tartrate 100 mg PO BID 09/18/18 09/18/18 Allergies Allergy/AdvReac Type Severity Reaction Status Date / Time Nortriptyline Allergy Severe Swelling Verified 09/18/18 09:33 of Lip/Tongue/Throat All systems ED: reviewed and negative except as stated. Review of Systems: As Per HPI Constitutional: Denies: fever, chills, weakness Eyes: Denies: vision change ENT ED: Denies: dental pain, epistaxis, congestion Cardiovascular: Denies: chest pain, syncope Respiratory: Denies: cough, dyspnea Gastrointestinal: Denies: abdominal pain, nausea, vomiting Genitourinary: Denies: dysuria Musculoskeletal: Denies: back pain Integumentary: Reports: abrasion. Denies: rash Neurological: Reports: headache, abnormal gait. Denies: confusion, vertigo Psychiatric: Denies: anxiety, depression Hematological/Lymphatic: Denies: easy bleeding Fall PMH - Past Medical History Medical history: Reports: arthritis, diabetes, GERD, hyperlipidemia, hypertension, other Surgical history: Reports: appendectomy, cholecystectomy, hysterectomy, orthopedic, other, pacemaker/AICD, other Psychiatric history: Reports: anxiety, depression TOOL COORDINATOR history: Reports: no TOOL COORDINATOR history - Social History Smoking Status: Never smoker Alcohol use: Reports: none Drug use: Reports: none Physical Exam - General Limitations: no limitations General appearance: alert, obese - Head Head exam: normocephalic - Expanded Head Exam Head exam physicial: Present: laceration (Nasal bridge), abrasion - Eye Eye exam: Present: normal appearance, PERRL, EOMI. Absent: scleral icterus, nystagmus - ENT ENT exam: normal exam, normal oropharynx, mucous membranes moist, TM's normal bilaterally - Expanded ENT Exam External ear exam: Present: normal external inspection Nose exam: nasal deviation (To the left), laceration, abrasion. negative: rhinorrhea, crepitus, septal hematoma Nasal speculum exam: Bilateral: normal Mouth exam: Present: normal external inspection, tongue normal. Absent: laceration Teeth exam: Present: normal inspection Throat exam: Present: normal inspection - Neck Neck exam: Present: normal inspection, full ROM, trachea midline. Absent: tenderness - Expanded Neck Exam Neck exam focused ED: Absent: midline tenderness - Chest Chest inspection: Present: normal inspection, symmetric chest wall rise, other (Pacemaker to the left chest) - Respiratory Respiratory exam: Present: normal lung sounds bilaterally. Absent: respiratory distress, wheezes - Cardiovascular Cardiovascular exam: Present: regular rate, normal rhythm, normal heart sounds - Abdominal Exam Abdominal exam: Present: soft, Non-Tender, normal bowel sounds. Absent: tenderness, distention, guarding, rebound, rigidity - Extremities Exam Extremities exam: Present: normal inspection, full ROM, normal capillary refill. Absent: tenderness, pedal edema - Expanded Lower Extremity Exam Hip/Pelvis exam: Present: normal inspection, full ROM, pelvis stable. Absent: external rotation, internal rotation, shortening Upper leg exam: Present: normal inspection, full ROM Knee exam: Present: normal inspection, full ROM Lower leg exam: Present: normal inspection, full ROM Ankle exam: Present: normal inspection, full ROM Foot/toe exam: Present: normal inspection, full ROM Neurovascular/Tendon exam: Absent: motor deficit, sensory deficit, tendon deficit - Back Exam Back exam: Present: normal inspection, full ROM. Absent: tenderness, vertebral tenderness - Neurological Exam Neurological exam: Present: alert, oriented X3 - Psychiatric Psychiatric exam: Present: normal affect, normal mood - Skin Skin exam: Present: warm, dry, intact, normal color. Absent: rash, cyanosis, diaphoresis Course Course Narrative: Patient presents with fall. She denied any prodromal symptoms prior to the fall. Denies any chest pain shortness of breath or confusion at this time. Review for vital signs shows that she is afebrile but hypertensive. On exam she has obvious deformity to her nose with the laceration. There is no septal hematoma appreciated. She is awake alert and oriented to person place and time. Sounds like this was a mechanical fall however she does take aspirin and was unable to brace herself. It appears this was more of mechanical fall due to the weakness and unsteadiness in her feet. There is no tenderness or deformities to upper extremities. Her pelvis is stable. Patient was able to ambulate after the incident. There is no shortening of the legs. CT of the head neck and facial bones ordered. Tetanus updated here. Patient reports history of frequent falls with another fall yesterday. Her blood pressure is also elevated which she denies any symptoms such as confusion, chest pain shortness of breath or difficulty with urination. - Reevaluation(s) Reevaluation #1: Rest of her family is here in they report patient has a history of uncontrolled hypertension. It was revealed that her terminally ill has been helping with setting out her medications. They have been cutting her pills in half which included her lisinopril, metoprolol and isosorbide. They have seen their package dyer Dr. Cantrell and was recently evaluated for this as well. Review of her labs do not show any evidence of end organ damage. Patients able to urinate without difficulty. Given her recent frequent falls in uncontrolled blood pressure will admit the patient for observation. Her blood pressure has gradually improved without any medical intervention here from initial systolic of 211 to 203. At this time patient would benefit admission and close monitoring given her history of frequent falls and uncontrolled hypertension and aspirin use as she may be unsafe to discharge home. The laceration to her nose was fixed with skin glue. She otherwise appears in no acute distress. EKG did not reveal any ischemic findings. Impression is frequent falls, nasal fractur e, accelerated hypertension. Time: 12:37 - Consultations Consultation #1: Spoke with on-call hospitalist joselito Pedraza to admit for accelerated hypertension, frequent falls, nasal fracture. No further orders at this time Time: 13:19 Vital Signs Temperature 97.4 F L 09/18/18 09:31 Pulse Rate 71 09/18/18 09:31 Respiratory Rate 18 09/18/18 09:31 Blood Pressure 208/77 09/18/18 09:31 O2 Sat by Pulse Oximetry 96 09/18/18 09:31 Temperature 97.4 F L 09/18/18 09:37 Pulse Rate 69 09/18/18 09:37 Respiratory Rate 18 09/18/18 09:37 Blood Pressure 214/82 09/18/18 09:37 O2 Sat by Pulse Oximetry 100 09/18/18 09:37 Oxygen Delivery Oxygen Delivery Room Air Procedures - Laceration Laceration 1 Site: face Size (cm): 2 Description: linear, stellate Depth: simple, single layer Skin layer closed with: skin glue Fall - MDM Narrative Medical decision making narrative: Patient was discussed with my attending physician who agrees with ED management and final disposition. They independently evaluated the patient. Please refer to their attestation to this encounter for additional information. This note was generated by Beep voice recognition software and as a result grammatical or spelling errors may occur using this program. - Medical Records Medical records reviewed: Yes I reviewed the patient's medical records. - Lab Data Lab results reviewed: Yes I reviewed the patient's lab results. Result diagrams: 09/18/18 11:24 09/18/18 11:24 Lab Results 09/18/18 09/18/18 Range/Units 11:24 11:24 WBC 5.4 (4.3-11.1) K/mcL RBC 4.53 (3.82-4.97) M/mcL Hgb 14.0 (11.5-15.4) g/dL Hct 41.9 (35.3-44.9) % MCV 92.5 (83.0-100.0) fL MCH 30.9 (28.0-33.3) pg MCHC 33.4 (31.6-35.5) g/dL RDW 13.2 (11.5-14.5) % Plt Count 179 (140-400) K/mcL MPV 9.9 (9.4-12.4) fL Immature Gran % 0.2 (0-4) % Seg Neutrophils % 67.6 % Lymphocytes % 20.9 % Monocytes % 7.6 % Eosinophils % 3.0 % Basophils % 0.7 % Neutrophils # 3.6 (1.6-8.9) K/mcL Lymphocytes # 1.1 (0.6-4.6) K/mcL Monocytes # 0.4 (0.0-1.3) K/mcL Eosinophils # 0.2 (0.0-0.6) K/mcL Basophils # 0.0 (0.0-0.2) K/mcL Sodium 145 (136-145) mEq/L Potassium 3.5 (3.5-5.1) mEq/L Chloride 104 (98-107) mEq/L Carbon Dioxide 34 H (23-29) mEq/L BUN 22 (8-23) mg/dL Creatinine 0.87 (0.60-1.20) mg/dL Est GFR ( Amer) > 60 (> 60) Est GFR (Non-Af Amer) > 60 (> 60) BUN/Creatinine Ratio 25 (6-26) Glucose 113 H (70-105) mg/dL Calculated Osmolality 304 H (280-300) Calcium 8.9 (8.6-10.3) mg/dL - Radiology Data Radiology results reviewed: Yes I reviewed the patient's radiology results. Cervical Spine CT 09/18/18 09:56 IMPRESSION: Multilevel degenerative changes of the cervical spine with no radiographic findings to suggest presence of acute fracture. D/ / 09/18/2018 10:44:41 Alexander Brower MD / [facility] Interpreting Provider: Alexander Brower MD Face CT 09/18/18 09:56 IMPRESSION: Displaced fractures of the superior nasal bones. No other fractures identified. D/ / Nj Alberto MD / Nj Alberto MD Interpreting Provider: Nj Alberto MD Head CT 09/18/18 09:56 IMPRESSION: 1. No evidence of acute intracranial abnormality. 2. Findings suggestive of presence of bilateral nasal bone fractures as described above. D/ / 09/18/2018 10:50:44 Alexander Brower MD / [facility] Interpreting Provider: Alexander Brower MD Chest X-Ray 09/18/18 11:15 IMPRESSION: No acute process. D/ / Nj Alberto MD / Nj Alberto MD Interpreting Provider: Nj Albreto MD - EKG Data EKG attestation: Yes I reviewed and interpreted this EKG. EKG results narrative: EKG performed at 0944 showed atrial paced rhythm similar to prior EKG performed on 09/08/2018. A repeat EKG was performed at 0946 which showed atrial and ventricular paced rhythm without Sgarbossa criteria, no acute ischemic changes.
--- NOTE | 2018-09-18 10:40 | Emergency Department Note ---
Disposition Clinical Impression: Fall Qualifiers: Encounter type: subsequent encounter Qualified Code(s): W19.XXXD - Unspecified fall, subsequent encounter Disposition: Still a Patient Referrals: Chris Christina DO [Primary Care Provider] - Forms: ED Satisfaction Letter General Adult HPI - General Chief complaint: ED Fall Stated complaint: fall Time Seen by Provider: 09/18/18 09:34 - History of Present Illness Pain Scale: 5 - Related Data Home Medications Medication Instructions Recorded Confirmed Aspirin [Lo-Dose Aspirin EC] 81 mg PO DAILY 03/17/18 03/17/18 BuPROPion XL (24 HR) [Wellbutrin 300 mg PO DAILY 03/17/18 03/17/18 Xl] Cholecalciferol (D-3) [Vitamin D] 1,000 unit PO DAILY 03/17/18 03/17/18 Escitalopram [Lexapro] 20 mg PO DAILY 03/17/18 03/17/18 Isosorbide MONOnitrate [Isosorbide 120 mg PO DAILY 03/17/18 03/17/18 Mononitrate ER] Lactobacillus Acidophilus 1 mg PO BID 03/17/18 03/17/18 [Acidophilus Probiotic] Lisinopril [Zestril] 40 mg PO BID 03/17/18 03/17/18 Metoprolol [Lopressor] 50 mg PO BID 03/17/18 03/17/18 Montelukast [Singulair] 10 mg PO DAILY 03/17/18 03/17/18 Nabumetone [Relafen] 500 mg PO BID 03/17/18 03/17/18 Omeprazole [PriLOSEC] 20 mg PO DAILY 03/17/18 03/17/18 Simvastatin [Zocor] 40 mg PO HS 03/17/18 03/17/18 Trazodone HCl 150 mg PO HS 03/17/18 03/17/18 Vit A/Vit C/Vit E/Zinc/Copper 1 tab PO DAILY 03/17/18 03/17/18 [Preservision Areds Tablet] hydroCHLOROthiazide 25 mg PO DAILY 03/17/18 03/17/18 [Hydrochlorothiazide] metFORMIN [Glucophage] 250 mg PO BID 03/17/18 03/17/18 Allergies Allergy/AdvReac Type Severity Reaction Status Date / Time Nortriptyline Allergy Severe Swelling Verified 09/18/18 09:33 of Lip/Tongue/Throat Past Medical History - Past Medical History Medical history: Reports: arthritis, diabetes, GERD, hyperlipidemia, hypertension, other Surgical history: Reports: appendectomy, cholecystectomy, hysterectomy, orthopedic, other, pacemaker/AICD, other Psychiatric history: Reports: anxiety, depression STRIKE OPERATIONS OFFICER history: Reports: no STRIKE OPERATIONS OFFICER history - Social History Smoking Status: Never smoker Smokeless Tobacco Status: No Alcohol use: Reports: none Drug use: Reports: none Physical Exam - General General appearance: alert Course Vital Signs Temperature 97.4 F L 09/18/18 09:31 Pulse Rate 71 09/18/18 09:31 Respiratory Rate 18 09/18/18 09:31 Blood Pressure 208/77 09/18/18 09:31 O2 Sat by Pulse Oximetry 96 09/18/18 09:31 Temperature 97.4 F L 09/18/18 09:37 Pulse Rate 69 09/18/18 09:37 Respiratory Rate 18 09/18/18 09:37 Blood Pressure 214/82 09/18/18 09:37 O2 Sat by Pulse Oximetry 100 09/18/18 09:37 Oxygen Delivery Oxygen Delivery Room Air Attestation Statement - Attestation Attestation: I examined this patient and my medical decision-making was reviewed with the Resident Physician. I agree with the documented findings, disposition and treatment plan as described except to the extent set forth below. 73 year old female present to the eD with complants of mutliple falls and her most recent one causing injury to her face and head. WE will do a trauma evaluation for patine. She is hypertenstinve but EKG is av paced and does not show any ischmeic changes or scarbossa critieria
[2018-09-18 11:36] LABS: Basophils % 0.7 %; Eosinophils # 0.2 K/mcL (0.0-0.6); Hematocrit 41.9 % (35.3-44.9); Immature Granulocytes % 0.2 % (0-4); Lymphocytes # 1.1 K/mcL (0.6-4.6); Lymphocytes % 20.9 %; Mean Corpuscular HGB Conc 33.4 g/dL (31.6-35.5); Mean Corpuscular Hemoglobin 30.9 pg (28.0-33.3); Mean Corpuscular Volume 92.5 fL (83.0-100.0); Mean Platelet Volume 9.9 fL (9.4-12.4); Monocytes # 0.4 K/mcL (0.0-1.3); Monocytes % 7.6 %; Neutrophils # 3.6 K/mcL (1.6-8.9); Platelet Count 179 K/mcL (140-400); Red Blood Count 4.53 M/mcL (3.82-4.97); Red Cell Distribution Width 13.2 % (11.5-14.5); Segmented Neutrophils % 67.6 %
[2018-09-18 11:53] LABS: BUN/Creatinine Ratio 25 (6-26); Blood Urea Nitrogen 22 mg/dL (8-23); Calcium 8.9 mg/dL (8.6-10.3); Carbon Dioxide 34 mEq/L (23-29); Chloride 104 mEq/L (98-107); Glucose 113 mg/dL (70-105); Osmolality,Calculated 304 (280-300); Potassium 3.5 mEq/L (3.5-5.1); Sodium 145 mEq/L (136-145); eGFR For Non-African Americans > 60 (> 60)
[2018-09-18 13:36] LABS: Bilirubin,Urine Negative (Negative); Blood,Urine Negative (Negative); Clarity,Urine Clear (Clear); Color,Urine Yellow (Yellow); Glucose,Urine (UA) Normal (Normal); Ketones,Urine Negative (Negative); Leukocyte Esterase,Urine Negative (Negative); Nitrite,Urine Negative (Negative); PH,Urine 7.5 pH Units (5.0-8.0); Protein,Urine Negative (Neg-Trace); Specific Gravity,Urine 1.012 (1.010-1.025); Urobilinogen,Urine Normal (Normal)
[2018-09-18] MEDS ORDERED: Naloxone 0.4 MG/ML INJ IVP PRN (15:08)
[2018-09-18] MEDS ORDERED: D5% in Water 1,000 ML IVC PRN (15:13)
[2018-09-18] MEDS ORDERED: *HR* Dextrose 50 % in Water (Syg) 50 ML SYRINGE IVP PRN (15:13)
[2018-09-18] MEDS ORDERED: Dextrose Gel 15 GM/37.5 ML TUBE PO PRN ×2 (15:13)
[2018-09-18] MEDS: Lisinopril 20 MG TABLET PO SCH ×2 (15:39→22:23)
--- NOTE | 2018-09-18 16:21 | Internal Med History&Physical ---
Date of Encounter: 09/18/18 Time of Encounter: 15:00 Internal Medicine - H&P: HPI Chief complaint: Fall, face pain Admitted From: Emergency Dept Plans for Post Hospital Care: Home History of present illness: Ms. Liang is a 73 year old female with history of HTN, DM2, who presented to the ED this morning with complaint of frequent fall, and an acute fall this morning. She states she was walking up the stairs to watch her daughter play basketball, and she fell at the top of the stairs. She states that she tipped forward and then lost her balance and fell. She did not lose consciousness, did not have chest pain or trouble breathing. Family is present in the room and states that she has been falling numerous times per week recently. Her daughter noticed that she has had an unsteady gait for the past several months. She is taking care of her terminally ill at home, and admits that she has been frequently missing her medications. She was seen in the ED earlier this week after she was found to be markedly hypertensive at the cardiology office (200s/110s) and at that time refused admission. She notes that her blood pressure runs around 200 systolic every day, and has so for the past several months. In the ED she was found to have nasal bone fracture. She complains of mild headache which was not present prior to the fall. Past Med Surg Social Fam HX - Past Medical History Medical history: arthritis, diabetes, GERD, hyperlipidemia, hypertension, other Additional medical history: upper and lower dentures Psychiatric history: anxiety, depression - Past Surgical History Surgical History: appendectomy, cholecystectomy, hysterectomy, orthopedic, other, pacemaker/AICD, other Additional surgical history: right knee replacement - Social History Smoking Status: Never smoker Smokeless Tobacco Status: No Alcohol use: none Drug use: none - Family History Mother Family Member Ethnicity: Non- Living Status: Father Family Member Ethnicity: Non- Living Status: Hx Family Endocrine Disorder: Yes (Cirrhosis) Sister Family Member Ethnicity: Non- Living Status: Hx Family Cancer: Yes (Uterine, Breast, Liver) Internal Medicine - H&P: Meds Aspirin [Lo-Dose Aspirin EC] 81 mg PO DAILY 03/17/18 [History] Cholecalciferol (D-3) [Vitamin D] 1,000 unit PO DAILY 03/17/18 [History] Escitalopram [Lexapro] 20 mg PO DAILY 03/17/18 [History] Isosorbide MONOnitrate [Isosorbide Mononitrate ER] 150 mg PO DAILY 03/17/18 [History] Lactobacillus Acidophilus [Acidophilus Probiotic] 1 mg PO BID 03/17/18 [History] Lisinopril [Zestril] 40 mg PO BID 03/17/18 [History] Montelukast [Singulair] 10 mg PO DAILY 03/17/18 [History] Nabumetone [Relafen] 500 mg PO BID 03/17/18 [History] Omeprazole [PriLOSEC] 20 mg PO DAILY 03/17/18 [History] Simvastatin [Zocor] 40 mg PO HS 03/17/18 [History] Trazodone HCl 150 mg PO HS 03/17/18 [History] Vit A/Vit C/Vit E/Zinc/Copper [Preservision Areds Tablet] 1 tab PO DAILY 03/17/18 [History] metFORMIN [Glucophage] 250 mg PO BID 03/17/18 [History] BuPROPion SR (12 HR) [Wellbutrin SR] 150 mg PO DAILY 09/18/18 [History] Buspirone HCl [Buspar] 10 mg PO TID 09/18/18 [History] Fluticasone Propionate Nasal [Flonase] 1 spr NS DAILY 09/18/18 [History] Furosemide [Lasix] 20 mg PO BID 09/18/18 [History] Metoprolol Tartrate 100 mg PO BID 09/18/18 [History] Allergy/AdvReac Type Severity Reaction Status Date / Time Nortriptyline Allergy Severe Swelling Verified 09/18/18 09:33 of Lip/Tongue/Throat All Systems PM: A 10-system review of systems was performed and is negative for pertinent findings except as documented above in the HPI. - Constitutional Constitutional: falls, weakness, no fever(s) - EENT Eyes: no blurry vision - Cardiovascular Cardiovascular ROS IM: no chest pain, no dyspnea - Respiratory Respiratory: no cough, no dyspnea - Gastrointestinal Gastrointestinal: constipation, no change in bowel habits - Musculoskeletal Musculoskeletal ROS IM: no muscle cramps - Integumentary Integumentary IM: no rash - Neurological Neurological ROS: memory loss - Psychiatric Psychiatric: confusion - Endocrine Endocrine IM: fatigue - Constitutional Vitals: Temp Pulse Resp BP Pulse Ox 97.7 F 70 18 185/96 95 09/18/18 14:36 09/18/18 14:36 09/18/18 14:36 09/18/18 16:01 09/18/18 14:36 General appearance: Present: A&O X 3, no acute distress Exam: Patient resting comfortably in bed, in no acute distress - Head Additional comments: Bruising on forehead, nose with scrapes on bridge - Eye Eye exam: Present: EOMI, sclera anicteric - ENT ENT exam: Present: mucous membranes moist - Neck Neck exam general surgery: Present: supple - Respiratory Respiratory exam: Present: CTAB - Cardiovascular Cardiovascular exam: Present: RRR. Absent: diastolic murmur, gallop, rubs, systolic murmur - GI/Abdominal GI/Abdominal exam: Present: normal bowel sounds, soft. Absent: distended, tenderness - Extremities Exam Extremities exam: Absent: pedal edema - Neurological Exam Neurological exam: Present: no focal deficits - Psychiatric Psychiatric exam: Present: depressed - Skin Skin exam: Absent: rash Internal Med - H&P Results - Labs CBC & Chem 7: 09/18/18 11:24 09/18/18 11:24 Labs: Short CBC 09/18/18 Range/Units 11:24 WBC 5.4 (4.3-11.1) K/mcL Hgb 14.0 (11.5-15.4) g/dL Hct 41.9 (35.3-44.9) % Plt Count 179 (140-400) K/mcL Neutrophils # 3.6 (1.6-8.9) K/mcL BMP 09/18/18 11:24 Sodium 145 Potassium 3.5 Chloride 104 Carbon Dioxide 34 H BUN 22 Creatinine 0.87 Glucose 113 H Calcium 8.9 Urine 09/18/18 Range/Units 13:29 Urine Color Yellow (Yellow) Urine Clarity Clear (Clear) Urine pH 7.5 (5.0-8.0) pH Units Ur Specific [place] 1.012 (1.010-1.025) Urine Protein Negative (Neg-Trace) mg/dL Urine Glucose (UA) Normal (Normal) mg/dL - Impressions ITS Impressions Cervical Spine CT 09/18/18 09:56 IMPRESSION: Multilevel degenerative changes of the cervical spine with no radiographic findings to suggest presence of acute fracture. D/ / 09/18/2018 10:44:41 Alexander Brower MD / alissa Interpreting Provider: Alexander Brower MD Face CT 09/18/18 09:56 IMPRESSION: Displaced fractures of the superior nasal bones. No other fractures identified. D/ / Nj Alberto MD / Nj Alberto MD Interpreting Provider: Nj Alberto MD Head CT 09/18/18 09:56 IMPRESSION: 1. No evidence of acute intracranial abnormality. 2. Findings suggestive of presence of bilateral nasal bone fractures as described above. D/ / 09/18/2018 10:50:44 Alexander Brower MD / alissa Interpreting Provider: Alexander Brower MD Chest X-Ray 09/18/18 11:15 IMPRESSION: No acute process. D/ / Nj Alberto MD / Nj Alberto MD Interpreting Provider: Nj Alberto MD - Assessment and plan (1) Fall Current Visit: Yes Status: Acute Assessment and plan: Sounds like mechanical fall from loss of balance combined with weakness - has had multiple falls. - PT/OT evaluation - Control blood pressure - Monitor on telemetry. Qualifiers: Encounter type: initial encounter Qualified Code(s): W19.XXXA - Unspecified fall, initial encounter (2) Diabetes Current Visit: No Status: Chronic Assessment and plan: Diabetic diet, hold metformin, give SSI while admitted Qualifiers: Diabetes mellitus type: type 2 Diabetes mellitus long term care pharmacist insulin use: without retirement use Diabetes mellitus complication status: with unspecified complications Qualified Code(s): E11.8 - Type 2 diabetes mellitus with unspecified complications (3) Nasal fracture Current Visit: Yes Status: Acute Assessment and plan: s/p fall. ENT contacted from ED, will plan for outpatient follow up of nasal fracture. Qualifiers: Encounter type: initial encounter Fracture type: closed Qualified Code(s): S02.2XXA - Fracture of nasal bones, initial encounter for closed fracture (4) Accelerated hypertension Current Visit: Yes Status: Acute Assessment and plan: Secondary to medication noncompliance. - Will restart home meds and monitor for improvement - Goal SBP 180s tonight, as patient has been hypertensive for months. Code(s): I10 - Essential (primary) hypertension SNOMED Code(s): 97554212 (5) DVT prophylaxis Current Visit: No Status: Acute Assessment and plan: SCDs SNOMED Code(s): 292333635, 084230479 - Time Spent With Patient Total time spent is greater than 50% in coordination of care (as documented) at patient's floor/unit and/or counseling patient:
[2018-09-18] MEDS: Insulin LISPRO 300 UNITS/3 ML VIAL SQ SCH ×2 (16:34→21:43)
[2018-09-18] MEDS: Furosemide 20 MG TABLET PO SCH (17:46)
[2018-09-18] MEDS: Lactobacillus 1 EACH CAP.SPRINK PO SCH (20:51)
[2018-09-18] MEDS: Metoprolol 100 MG TABLET PO SCH (20:51)
[2018-09-18] MEDS: traZODone 50 MG TABLET PO SCH (20:51)
[2018-09-18] MEDS: Acetaminophen 325 MG TABLET PO PRN (20:52)
[2018-09-18] MEDS ORDERED: *HR* Metformin 500 MG TABLET PO SCH (21:00)
[2018-09-19 05:55] LABS: Basophils % 0.8 %; Eosinophils # 0.2 K/mcL (0.0-0.6); Eosinophils % 4.9 %; Hematocrit 41.9 % (35.3-44.9); Hemoglobin 14.1 g/dL (11.5-15.4); Immature Granulocytes % 0.2 % (0-4); Lymphocytes # 1.5 K/mcL (0.6-4.6); Lymphocytes % 30.5 %; Mean Corpuscular HGB Conc 33.7 g/dL (31.6-35.5); Mean Corpuscular Hemoglobin 30.8 pg (28.0-33.3); Mean Corpuscular Volume 91.5 fL (83.0-100.0); Mean Platelet Volume 10.3 fL (9.4-12.4); Monocytes # 0.5 K/mcL (0.0-1.3); Monocytes % 10.6 %; Neutrophils # 2.6 K/mcL (1.6-8.9); Platelet Count 171 K/mcL (140-400); Red Blood Count 4.58 M/mcL (3.82-4.97)
[2018-09-19 06:13] LABS: BUN/Creatinine Ratio 25 (6-26); Blood Urea Nitrogen 17 mg/dL (8-23); Calcium 9.1 mg/dL (8.6-10.3); Carbon Dioxide 32 mEq/L (23-29); Chloride 106 mEq/L (98-107); Glucose 94 mg/dL (70-105); Osmolality,Calculated 299 (280-300); Potassium 3.5 mEq/L (3.5-5.1); Sodium 144 mEq/L (136-145); eGFR For Non-African Americans > 60 (> 60)
[2018-09-19] MEDS: Insulin LISPRO 300 UNITS/3 ML VIAL SQ SCH ×4 (08:04→20:10)
[2018-09-19] MEDS ORDERED: Isosorbide MONOnitrate (24 HR) 30 MG TAB.ER.24H PO SCH (09:00)
[2018-09-19] MEDS: Lisinopril 20 MG TABLET PO SCH ×2 (09:39→20:08)
[2018-09-19] MEDS: BuPROPion SR (12 HR) 150 MG TABLET PO SCH (09:39)
[2018-09-19] MEDS: Metoprolol 100 MG TABLET PO SCH ×2 (09:39→20:09)
[2018-09-19] MEDS: Furosemide 20 MG TABLET PO SCH ×2 (09:39→17:47)
[2018-09-19] MEDS: Aspirin Enteric Coated 81 MG Tablet PO SCH (09:39)
[2018-09-19] MEDS: Lactobacillus 1 EACH CAP.SPRINK PO SCH ×2 (09:39→20:09)
[2018-09-19] MEDS: Cholecalciferol (D-3) 1,000 UNIT TABLET PO SCH (09:39)
[2018-09-19] MEDS: Multivit/Ca/Min/Fe/FA 1 TAB TABLET PO SCH (09:39)
[2018-09-19] MEDS: Fluticasone Propionate Nasal 50 MCG/SPRAY BOTTLE NS SCH (09:43)
[2018-09-19] MEDS: amLODIPine 5 MG TABLET PO SCH (12:33)
[2018-09-19] MEDS ORDERED: Isosorbide MONOnitrate (24 HR) 60 MG TAB.ER.24H PO SCH (15:04)
--- NOTE | 2018-09-19 15:28 | Internal Med Progress Note ---
Hospitalist Progress Note - Encounter Date of Encounter: 09/19/18 Time of Encounter: 15:26 - Subjective Interval History: SUBJECTIVE: The patient feels good. However, she has not started any ambulation yet. She was admitted after a fall; had multiple falls recently. Her gait is unsteady. Denies headache. Denies dizziness/lightheadedness, resting and walking. She has not had any chest pain recently. Denies abdominal pain, nausea and vomiting. She has normal urination. OBJECTIVE: Skin: Free of rash and discoloration. ENMT: Oral/pharyngeal mucosa is normal in appearance. Eyes: Sclera is white. There is no discharge from eyes. Respiratory: Normal breath sounds; no crackles or wheezes. CV: Heart is regular; no gallop or murmur. GI: Abdomen is soft and not tender. There is no palpable mass or visceromegaly. Neuro: There is no focal deficits. ADDITIONAL DATA: CBC is normal. BMP is normal, too (potassium is 3.5). UA shows normal finding s. Chest x-ray shows normal findings. CT of head and brain/facial bones shows displaced fractures of the superior and nasal bones. There is no evidence for any acute intracranial abnormality. CT of cervical spine shows multilevel degenerative changes of the cervical spine with no evidence to suggest presence of acute fracture. ASSESSMENT AND PLAN: Frequent falls. Etiology is unclear. They are associated with unsteady gait. We will check her orthostatics. Together with TSH, folic acid and vitamin B12 levels. We will treat her accelerated hypertension with addition of Norvasc to her Lopr essor and Zestril. The patient will get physical therapy for ambulation. Her nasal fractures do not require any surgical treatments at this time. Type 2 diabetes mellitus. She was on metformin at home. Currently she is on diabetic diet and when necessary insulin Humalog. GERD. Under control. We will continue Prilosec. - Exam Vitals: Temp Pulse Resp BP Pulse Ox 98.0 F 71 16 168/85 95 09/19/18 12:11 09/19/18 12:11 09/19/18 12:11 09/19/18 12:11 09/19/18 12:11 Exam: xx - Assessment and Plan (1) Fall Current Visit: Yes Status: Acute (2) Nasal fracture Current Visit: Yes Status: Acute (3) Unsteady gait Current Visit: Yes Status: Acute (4) Accelerated hypertension Current Visit: Yes Status: Acute Code(s): I10 - Essential (primary) hypertension SNOMED Code(s): 54855755 (5) T2DM (type 2 diabetes mellitus) Current Visit: Yes Status: Acute (6) GERD (gastroesophageal reflux disease) Current Visit: No Status: Chronic - Time Spent with Patient Total time spent is greater than 50% in coordination of care (as documented) at patient's floor/unit and/or counseling patient: 25 - 35 minutes Plan of Care Discussed with: patient Internal Medicine: Result - Labs CBC & Chem 7: 09/19/18 04:44 09/19/18 04:44 Labs: Short CBC 09/19/18 Range/Units 04:44 WBC 4.9 (4.3-11.1) K/mcL Hgb 14.1 (11.5-15.4) g/dL Hct 41.9 (35.3-44.9) % Plt Count 171 (140-400) K/mcL Neutrophils # 2.6 (1.6-8.9) K/mcL BMP 09/19/18 04:44 Sodium 144 Potassium 3.5 Chloride 106 Carbon Dioxide 32 H BUN 17 Creatinine 0.69 Glucose 94 Calcium 9.1 Consult Discharge Plan - Plan Referrals: Chris Christina DO [Primary Care Provider] - (1) Fall Qualifiers: Encounter type: initial encounter Qualified Code(s): W19.XXXA - Unspecified fall, initial encounter (2) Nasal fracture Qualifiers: Encounter type: initial encounter Fracture type: closed Qualified Code(s): S02.2XXA - Fracture of nasal bones, initial encounter for closed fracture (5) T2DM (type 2 diabetes mellitus) Qualifiers: Diabetes mellitus detention insulin use: without moth exterminator use Diabetes mellitus complication status: without complication Qualified Code(s): E11.9 - Type 2 diabetes mellitus without complications (6) GERD (gastroesophageal reflux disease) Qualifiers: Esophagitis presence: esophagitis presence not specified Qualified Code(s): K21.9 - Gastro-esophageal reflux disease without esophagitis
[2018-09-19] MEDS: traZODone 50 MG TABLET PO SCH (20:09)
[2018-09-20] MEDS ORDERED: diazePAM 10 MG/2 ML SYRINGE IVP ONE (02:21)
[2018-09-20 07:01] LABS: BUN/Creatinine Ratio 29 (6-26); Blood Urea Nitrogen 23 mg/dL (8-23); Calcium 9.4 mg/dL (8.6-10.3); Carbon Dioxide 28 mEq/L (23-29); Chloride 107 mEq/L (98-107); Glucose 112 mg/dL (70-105); Magnesium 2.2 mg/dL (1.6-2.6); Osmolality,Calculated 298 (280-300); Sodium 142 mEq/L (136-145); eGFR For Non-African Americans > 60 (> 60)
[2018-09-20 07:08] LABS: Thyroid Stimulating Hormone 2.523 mcIU/mL (0.340-5.600)
[2018-09-20 07:18] LABS: Folate 8.2 ng/mL (3.0-16.0)
[2018-09-20] MEDS: Lisinopril 20 MG TABLET PO SCH ×2 (08:23→21:34)
[2018-09-20] MEDS: Lactobacillus 1 EACH CAP.SPRINK PO SCH ×2 (08:23→21:34)
[2018-09-20] MEDS: Furosemide 20 MG TABLET PO SCH (08:23)
[2018-09-20] MEDS: Multivit/Ca/Min/Fe/FA 1 TAB TABLET PO SCH (08:23)
[2018-09-20] MEDS: amLODIPine 5 MG TABLET PO SCH (08:23)
[2018-09-20] MEDS: BuPROPion SR (12 HR) 150 MG TABLET PO SCH (08:23)
[2018-09-20] MEDS: Cholecalciferol (D-3) 1,000 UNIT TABLET PO SCH (08:24)
[2018-09-20] MEDS: Metoprolol 100 MG TABLET PO SCH ×2 (08:24→21:33)
[2018-09-20] MEDS: Aspirin Enteric Coated 81 MG Tablet PO SCH (08:24)
[2018-09-20] MEDS: Insulin LISPRO 300 UNITS/3 ML VIAL SQ SCH ×4 (08:25→21:42)
[2018-09-20] MEDS: Fluticasone Propionate Nasal 50 MCG/SPRAY BOTTLE NS SCH (08:26)
[2018-09-20] MEDS: Acetaminophen 325 MG TABLET PO PRN (08:26)
[2018-09-20] MEDS: traZODone 50 MG TABLET PO SCH (21:34)
--- NOTE | 2018-09-20 23:06 | Internal Med Progress Note ---
Hospitalist Progress Note - Encounter Date of Encounter: 09/20/18 Time of Encounter: 16:30 - Subjective Interval History: SUBJECTIVE: The patient is in good spirits today. She did some walking with physical therapy today morning. She did not feel dizzy/lightheaded. Denies chest pain and difficulty breathing. Denies coughing and wheezing. Denies abdominal pain, nausea and vomiting. She has normal urination. She was admitted after a fall; had multiple falls in the last several months. OBJECTIVE: We tested her orthostatics today. They are okay. Skin: Free of rash and discoloration. ENMT: Oral/pharyngeal mucosa is normal in appearance. Eyes: Sclera is white. There is no discharge from eyes. Respiratory: Normal breath sounds; no crackles or wheezes. CV: Heart is regular; no gallop or murmur. GI: Abdomen is soft and not tender. There is no palpable mass or visceromegaly. Neuro: There is no focal deficits. ADDITIONAL DATA: Her BMP from today is normal. Vitamin B12, folate and TSH are normal, too. I am ordering echocardiogram. The patient will remain in telemetry floor. ASSESSMENT AND PLAN: Frequent falls. Etiology is unclear. They are associated with unsteady gait. CT of head, vitamin B12, folate and TSH are normal. Echocardiogram has been ordered. The patient will get physical therapy for ambulation. I will keep her on decreased dose of Lasix. Her blood pressure today seems to be better. I added Norvasc to Lopressor and Zestril yesterday. Nasal fractures. ENT consultation has been requested. Type 2 diabetes mellitus. She was on metformin at home. Currently she is on diabetic diet and when necessary insulin Humalog. GERD. Under control. We will continue Prilosec. Deconditioning. The patient will definitely benefit from a couple weeks of physical therapy. DISPOSITION: A referral has been made to [facility]. - Exam Vitals: Temp Pulse Resp BP Pulse Ox 97.6 F 70 16 172/80 95 09/20/18 19:46 09/20/18 19:46 09/20/18 19:46 09/20/18 19:46 09/20/18 19:46 Exam: xx - Assessment and Plan (1) Fall Current Visit: Yes Status: Acute (2) Unsteady gait Current Visit: Yes Status: Acute (3) Nasal fracture Current Visit: Yes Status: Acute (4) Accelerated hypertension Current Visit: Yes Status: Acute Code(s): I10 - Essential (primary) hypertension SNOMED Code(s): 53405966 (5) T2DM (type 2 diabetes mellitus) Current Visit: Yes Status: Acute (6) GERD (gastroesophageal reflux disease) Current Visit: No Status: Chronic - Time Spent with Patient Total time spent is greater than 50% in coordination of care (as documented) at patient's floor/unit and/or counseling patient: 25 - 35 minutes Plan of Care Discussed with: patient Internal Medicine: Result - Labs CBC & Chem 7: 09/19/18 04:44 09/20/18 06:19 Labs: BMP 09/20/18 06:19 Sodium 142 Potassium 4.0 Chloride 107 Carbon Dioxide 28 BUN 23 Creatinine 0.80 Glucose 112 H Calcium 9.4 - Impressions Impressions Cervical Spine CT 09/18/18 09:56 IMPRESSION: Multilevel degenerative changes of the cervical spine with no radiographic findings to suggest presence of acute fracture. D/ / 09/18/2018 10:44:41 Alexander Brower MD / alissa Interpreting Provider: Alexander Brower MD Head CT 09/18/18 09:56 IMPRESSION: 1. No evidence of acute intracranial abnormality. 2. Findings suggestive of presence of bilateral nasal bone fractures as described above. D/ / 09/18/2018 10:50:44 Alexander Brower MD / alissa Interpreting Provider: Alexander Brower MD Echocardiogram 09/19/18 11:22 Impressions: LVEF 55-60%. Normal LV chamber size, wall thickness and systolic function. Indeterminate diastolic function. Normal right ventricular structure and function. No significant valvular dysfunction. Unable to estimate RVSP due to lack of TR jet. Left Ventricular Wall Motion: Rest Echo Findings All wall segments showed normal motion. Findings: Study Quality * Technically adequate exam. ECG Findings * Normal sinus rhythm with occasional V pacing. Left Ventricle * LVEF 55-60%. * Normal LV chamber size, wall thickness and systoic function. * Indeterminate diastolic function. Right Ventricle * Normal right ventricular structure and function. Left Atrium * Normal left atrial size. Right Atrium * Normal right atrial size. Interatrial Septum * Interatrial septum not well evaluated. * No evidence of PFO by color Doppler. Aortic Valve * Trileaflet aortic valve with normal function. * No aortic regurgitation. * No aortic stenosis. Mitral Valve * Normal mitral valve structure and function. * No mitral stenosis. * Trace mitral regurgitation. Tricuspid Valve * Normal tricuspid valve structure and function. * No tricuspid stenosis. * No tricuspid regurgitation. * Unable to estimate RVSP due to lack of TR jet. * Estimated RA pressure is 10 mmHg. Pulmonic Valve * Pulmonic valve is not well visualized. * No pulmonic regurgitation. * No pulmonic stenosis. Aorta * Normally sized aortic root. Pericardium * The pericardium appears normal. IVC * Normal IVC dimensions and inspiratory collapse. Device lead * A device lead was visualized in the right atrium and right ventricle. Consult Discharge Plan - Plan Referrals: Chris Christina DO [Primary Care Provider] - (1) Fall Qualifiers: Encounter type: initial encounter Qualified Code(s): W19.XXXA - Unspecified fall, initial encounter (3) Nasal fracture Qualifiers: Encounter type: initial encounter Fracture type: closed Qualified Code(s): S02.2XXA - Fracture of nasal bones, initial encounter for closed fracture (5) T2DM (type 2 diabetes mellitus) Qualifiers: Diabetes mellitus prison insulin use: without rodent exterminator use Diabetes mellitus complication status: without complication Qualified Code(s): E11.9 - Type 2 diabetes mellitus without complications (6) GERD (gastroesophageal reflux disease) Qualifiers: Esophagitis presence: esophagitis presence not specified Qualified Code(s): K21.9 - Gastro-esophageal reflux disease without esophagitis
[2018-09-21] MEDS: Insulin LISPRO 300 UNITS/3 ML VIAL SQ SCH ×4 (08:04→20:37)
[2018-09-21] MEDS: Aspirin Enteric Coated 81 MG Tablet PO SCH (08:05)
[2018-09-21] MEDS: Lisinopril 20 MG TABLET PO SCH ×2 (08:05→20:04)
[2018-09-21] MEDS: BuPROPion SR (12 HR) 150 MG TABLET PO SCH (08:06)
[2018-09-21] MEDS: Metoprolol 100 MG TABLET PO SCH ×2 (08:06→20:04)
[2018-09-21] MEDS: Cholecalciferol (D-3) 1,000 UNIT TABLET PO SCH (08:06)
[2018-09-21] MEDS: amLODIPine 5 MG TABLET PO SCH (08:06)
[2018-09-21] MEDS: Multivit/Ca/Min/Fe/FA 1 TAB TABLET PO SCH (08:07)
[2018-09-21] MEDS: Furosemide 20 MG TABLET PO SCH (08:07)
[2018-09-21] MEDS: Lactobacillus 1 EACH CAP.SPRINK PO SCH ×2 (08:07→20:04)
[2018-09-21] MEDS: Fluticasone Propionate Nasal 50 MCG/SPRAY BOTTLE NS SCH (08:19)
--- NOTE | 2018-09-21 15:15 | Internal Med Progress Note ---
Hospitalist Progress Note - Encounter Date of Encounter: 09/21/18 Time of Encounter: 11:23 - Subjective Interval History: Patient seen and examined this morning. Denies new complains. Denies dizziness, weakness or numbness. Is ambulating well. No palpitation, fever, chills, N/V/D, urinary or bowel complains. - Exam Vitals: Temp Pulse Resp BP Pulse Ox 97.4 F L 69 16 157/84 96 09/21/18 11:21 09/21/18 11:21 09/21/18 11:21 09/21/18 11:09/21/18 11:21 Exam: General: In no acute distress. Conversant. Obese. Respiratory exam: CTAB. no accessory muscle use, rales, rhonchi, wheezes Cardiovascular exam: RRR, +S1, +S2. no murmur, gallop, rubs. GI/Abdominal exam: Non-tender, Non-distended, normal bowel sounds, soft, no peritoneal signs. Extremities exam: full ROM, no pedal edema, warm, pulses palpable in b/l lower extremities. no calf tenderness Neurological exam: CN II-XII intact, AO X3, no focal sensory or motor deficits. Skin exam: No skin rash. Bruise/abrasion noted on face. - Assessment and Plan (1) GERD (gastroesophageal reflux disease) Current Visit: No Status: Chronic (2) Fall Current Visit: Yes Status: Acute (3) Nasal fracture Current Visit: Yes Status: Acute (4) Accelerated hypertension Current Visit: Yes Status: Acute Code(s): I10 - Essential (primary) hypertension SNOMED Code(s): 46831606 (5) T2DM (type 2 diabetes mellitus) Current Visit: Yes Status: Acute (6) Unsteady gait Current Visit: Yes Status: Acute - Summary of Assessment and Plan Summary of Assessment and Plan: Frequent falls - Unclear etiology. possible deconditioning vs polypharmacy - CT of head, vitamin B12, folate and TSH are normal - Echocardiogram with EF 55-60, Intermediate diastolic dysfunction, no valvular dz, NWM. Stress test in March was normal. Normal orthostatics. - PT recommended ECF placement. - Will consult neurology. Diastolic CHF - c/w lasix daily. HTN - Uncontrolled initially. - Started on Norvasc on home Lopressor and Zestril yesterday. Now better. - Monitor closely. prn hydralazine for sbp>180 Nasal fractures. ENT consultation has been requested. DDM - Hold home meftormin - c/w accuchecks and sliding scale insulin GERD. - c/w home Prilosec. - Time Spent with Patient Total time spent is greater than 50% in coordination of care (as documented) at patient's floor/unit and/or counseling patient: Internal Medicine: Result - Labs CBC & Chem 7: 09/19/18 04:44 09/20/18 06:19 Consult Discharge Plan - Plan Referrals: Chris Christina DO [Primary Care Provider] - (1) GERD (gastroesophageal reflux disease) Qualifiers: Esophagitis presence: esophagitis presence not specified Qualified Code(s): K21.9 - Gastro-esophageal reflux disease without esophagitis (2) Fall Qualifiers: Encounter type: initial encounter Qualified Code(s): W19.XXXA - Unspecified fall, initial encounter (3) Nasal fracture Qualifiers: Encounter type: initial encounter Fracture type: closed Qualified Code(s): S02.2XXA - Fracture of nasal bones, initial encounter for closed fracture (5) T2DM (type 2 diabetes mellitus) Qualifiers: Diabetes mellitus long-term insulin use: without long-term use Diabetes mellitus complication status: without complication Qualified Code(s): E11.9 - Type 2 diabetes mellitus without complications
--- NOTE | 2018-09-21 15:39 | ENT - Consult Note ---
Addendum entered and electronically signed by Juanita Ferrell DO 09/22/18 14:53: The following procedure was recommended for the patient: Closed reduction nasal fracture with reduction of septal fracture in the operating room. Risks, benefits, and alternatives to the procedure were discussed with the patient in her hospital room. Risks include but not limited to failure to reduce the fracture, cosmetic deformity, failure to a alleviate nasal obstruction, possible need for further surgery. Patient understands these risks and is agreed to proceed with surgery as outlined if she is medically cleared for surgery. Consent was signed and placed in her office chart for surgical planning as an outpatient in the next 2-3 weeks. Original Note: <Maria Alejandra Ly - Last Filed: 09/21/18 16:47> Date of Encounter: 09/21/18 Time of Encounter: 15:37 Assessment and Plan (1) Nasal fracture Current Visit: Yes Status: Acute Patient Seen and examined at bedside today. Nasal endoscopy completed, no evidence of septal seroma or hematoma present. No active bleeding or oozing noted. CT scan demonstrates Displaced fractures of the superior nasal bones, which is consistent with physical exam findings. will discuss further plan of care for surgical intervention with Dr. Ferrell ENT physician. Plan of care discussed in detail with patient states her understanding and agrees. All ques tions answered. Qualifiers: Encounter type: initial encounter Fracture type: closed Qualified Code(s): S02.2XXA - Fracture of nasal bones, initial encounter for closed fracture History of Present Illness Consult date: 09/20/18 Reason for ENT Consult: other (nasal fracture) Requesting physician: Uvaldo Álvarez History of present illness: Ms. Liang is a 73 year old female with past medical history of HTN, DM2, who presented to the ED Thursday with complaint of frequent falls, and an acute fall that occurred thursday morning. She states she was walking up the stairs at the campus to watch her daughter play basketball, and she fell at the top of the stairs. She states that she tipped forward and then lost her balance and fell. She did not lose consciousness. She does report her nose bled directly after falling. ENT was consulted due to Displaced fractures of the superior nasal bones identified by CT face. Patient denies any facial pain, sinus pain or pressure, or nasal pain currently. Patient admits to severe nasal congestion worse on the right. Patient denies any episodes of nasal bleeding since falling. Patient denies any dysphagia or odynophagia. Past Med Surg Social Fam HX - Past Medical History Medical history: arthritis, diabetes, GERD, hyperlipidemia, hypertension, other Additional medical history: upper and lower dentures Psychiatric history: anxiety, depression - Past Surgical History Surgical History: appendectomy, cholecystectomy, hysterectomy, orthopedic, other, pacemaker/AICD, other Additional surgical history: right knee replacement - Social History Smoking Status: Never smoker Smokeless Tobacco Status: No Alcohol use: none Drug use: none - Family History Mother Family Member Ethnicity: Non- Living Status: Father Family Member Ethnicity: Non- Living Status: Hx Family Endocrine Disorder: Yes (Cirrhosis) Sister Family Member Ethnicity: Non- Living Status: Hx Family Cancer: Yes (Uterine, Breast, Liver) Medications and Allergies Aspirin [Lo-Dose Aspirin EC] 81 mg PO DAILY 03/17/18 [History] Cholecalciferol (D-3) [Vitamin D] 1,000 unit PO DAILY 03/17/18 [History] Escitalopram [Lexapro] 20 mg PO DAILY 03/17/18 [History] Isosorbide MONOnitrate [Isosorbide Mononitrate ER] 150 mg PO DAILY 03/17/18 [History] Lactobacillus Acidophilus [Acidophilus Probiotic] 1 mg PO BID 03/17/18 [History] Lisinopril [Zestril] 40 mg PO BID 03/17/18 [History] Montelukast [Singulair] 10 mg PO DAILY 03/17/18 [History] Nabumetone [Relafen] 500 mg PO BID 03/17/18 [History] Omeprazole [PriLOSEC] 20 mg PO DAILY 03/17/18 [History] Simvastatin [Zocor] 40 mg PO HS 03/17/18 [History] Trazodone HCl 150 mg PO HS 03/17/18 [History] Vit A/Vit C/Vit E/Zinc/Copper [Preservision Areds Tablet] 1 tab PO DAILY [History] metFORMIN [Glucophage] 250 mg PO BID 03/17/18 [History] BuPROPion SR (12 HR) [Wellbutrin SR] 150 mg PO DAILY 09/18/18 [History] Buspirone HCl [Buspar] 10 mg PO TID 09/18/18 [History] Fluticasone Propionate Nasal [Flonase] 1 spr NS DAILY 09/18/18 [History] Furosemide [Lasix] 20 mg PO BID 09/18/18 [History] Metoprolol Tartrate 100 mg PO BID 09/18/18 [History] Allergy/AdvReac Type Severity Reaction Status Date / Time Nortriptyline Allergy Severe Swelling Verified 09/18/18 09:33 of Lip/Tongue/Throat ENT - ROS - EENT Nose, mouth and throat: nasal trauma ENT Exam Initial Vital Signs Temp Pulse Resp BP Pulse Ox 97.4 F L 71 18 208/77 96 09/18/18 09:31 09/18/18 09:31 09/18/18 09:31 09/18/18 09:31 09/18/18 09:31 - General physical appearance well developed, well nourished, no distress - Eyes other (patient with periorbital echymosis noted bilaterally), PERRL, normal ocular movement - ENT CN 2-12 grossly intact, Other (EARS: bilateral EAC's clear. TM's normal bilaterally. NOSE: patient has outer nasal deformity with deviation to the right, anterior caudal septal deviation to the left, posterior right septal deviation, no evidence of septal seroma or hematoma. No active bleeding or oozing. Palpable step off of right and left nasal bone worse on right. ORAL: patient is edentulous, tongue midline, uvula midline, tonsils surgically absent. ) - Neck no masses, trachea midline, no lymphadectomy - Respiratory normal expansion, normal respiratory effort - Integumentary other (superficial laceration noted to bridge of nose, currently dry and closed. Previously glued. ) - Psychiatric oriented to time, oriented to person, oriented to place Exam Initial Vital Signs Temp Pulse Resp BP Pulse Ox 97.4 F L 71 18 208/77 96 09/18/18 09:31 09/18/18 09:31 09/18/18 09:31 09/18/18 09:31 09/18/18 09:31 Results - Labs 09/19/18 04:44 09/20/18 06:19 Abnormal lab results BUN/Creatinine Ratio 29 (6-26) H 09/20/18 06:19 Glucose 112 mg/dL (70-105) H 09/20/18 06:19 POC Glucose 182 mg/dL (70-99) H 09/20/18 20:20 All other labs normal. Consult Discharge Plan - Plan Referrals: Chris Christina DO [Primary Care Provider] - <Juanita Ferrell - Last Filed: 09/22/18 13:46> Date of Encounter: 09/22/18 Assessment and Plan (1) Nasal fracture Current Visit: Yes Status: Acute Qualifiers: Encounter type: initial encounter Fracture type: closed Qualified Code(s): S02.2XXA - Fracture of nasal bones, initial encounter for closed fracture ENT Exam Initial Vital Signs Temp Pulse Resp BP Pulse Ox 97.4 F L 71 18 208/77 96 09/18/18 09:31 09/18/18 09:31 09/18/18 09:31 09/18/18 09:31 09/18/18 09:31 Exam Initial Vital Signs Temp Pulse Resp BP Pulse Ox 97.4 F L 71 18 208/77 96 09/18/18 09:31 09/18/18 09:31 09/18/18 09:31 09/18/18 09:31 09/18/18 09:31 Results - Labs 09/19/18 04:44 09/20/18 06:19 Abnormal lab results BUN/Creatinine Ratio 29 (6-26) H 09/20/18 06:19 Glucose 112 mg/dL (70-105) H 09/20/18 06:19 POC Glucose 153 mg/dL (70-99) H 09/21/18 20:59 All other labs normal. - Attending Attestation The history, physical exam, and medical decision making by the nurse practioner who saw the patient at the bedside was reviewed and I agree with the assessment and plan.. I repeated the physical examination and agree with findings. CT scan reviewed of the sinuses. I have verified the accuracy of the Nurse practioners documentation with regards to communicating my history, physical exam findings, and medical decision making.
[2018-09-21] MEDS ORDERED: hydrALAZINE 10 MG TABLET PO PRN (15:43)
--- NOTE | 2018-09-21 16:58 | ENT - Procedure Note ---
Date of procedure: 09/21/18 Pre-op diagnosis: nasal fracture Post-op diagnosis: same Procedure: Nasal endoscopy Anesthesia: topical 4% lidocaine w/afrin. Scope: flexible. Findings: No evidence of septal seroma or hematoma. Anterior caudal septal deviation to the left, posterior right septal deviation, no active bleeding or oozing. No purulent drainage noted. No masses, polyps, or lesions visualized. Anesthesia: topical Was there an data control assistant present: No Estimated blood loss (cc): 0 Condition: stable
--- NOTE | 2018-09-21 19:49 | Electrocardiograph Report ---
[place] [id number] Test Date: 2018-09-18 Pat Name: Blanche Liang Department: EXAM6 Room: 3B23 Gender: F [employer] Operator: : 1945 Requested By: Maurice Álvarez Order Number: [id number] Reading MD: Ronda Cantrell Measurements Intervals [place] Rate: 69 P: HI: 247 QRS: 66 QRSD: 119 T: -37 QT: 432 QTc: 463 Interpretive Statements Atrial-paced complexes Prolonged HI interval Incomplete bundle branch block Nonspecific ST and T abnormalities Electronically Signed On 09-21-2018 19:47:27 EST by Ronda Cantrell
--- NOTE | 2018-09-21 19:51 | Electrocardiograph Report ---
[place] [id number] Test Date: 2018-09-18 Pat Name: Blanche Liang Department: EXAM6 Room: 3B23 Gender: F Director Education: : 1945 Requested By: Uvaldo Álvarez Order Number: [id number] Reading MD: Ronda Cantrell Measurements Intervals [place] Rate: 77 P: 70 DC: 27 QRS: -56 QRSD: 151 T: 98 QT: 483 QTc: 547 Interpretive Statements A-V dual-paced rhythm with some inhibition No further analysis attempted due to paced rhythm Electronically Signed On 09-21-2018 19:49:52 EST by Ronda Cantrell
[2018-09-21] MEDS: traZODone 50 MG TABLET PO SCH (20:03)
--- NOTE | 2018-09-21 23:48 | Event Note ---
Date of Encounter: 09/21/18 Time of Encounter: 21:30 Notified by nurse of patient having unequal pupils. Previous documentation shows PERRL. Assessed patient at bedside. Patient denies any known history of unequal pupils. Left pupil irregularly shaped with sluggish reaction to light. Patient also admits to vision changes since last night but denies reporting it to anyone. No other neurological deficits present. Stat Head CT ordered. Neurology consulted today, called hotel recreational facilities manager Dr Crawford and notified of patient change. Requests to be informed of any findings on head CT otherwise has no other recommendations at this time and will see patient tomorrow.
[2018-09-22] MEDS: *HR* Enoxaparin 40 MG/0.4 ML SYRINGE SQ SCH (05:51)
[2018-09-22] MEDS: Lactobacillus 1 EACH CAP.SPRINK PO SCH ×2 (08:42→20:01)
[2018-09-22] MEDS: Cholecalciferol (D-3) 1,000 UNIT TABLET PO SCH (08:42)
[2018-09-22] MEDS: BuPROPion SR (12 HR) 150 MG TABLET PO SCH (08:42)
[2018-09-22] MEDS: amLODIPine 5 MG TABLET PO SCH (08:42)
[2018-09-22] MEDS: Lisinopril 20 MG TABLET PO SCH (08:42)
[2018-09-22] MEDS: Aspirin Enteric Coated 81 MG Tablet PO SCH (08:43)
[2018-09-22] MEDS: Multivit/Ca/Min/Fe/FA 1 TAB TABLET PO SCH (08:43)
[2018-09-22] MEDS: Furosemide 20 MG TABLET PO SCH (08:43)
[2018-09-22] MEDS: Metoprolol 100 MG TABLET PO SCH ×2 (08:43→20:01)
--- NOTE | 2018-09-22 09:03 | Internal Med Progress Note ---
Hospitalist Progress Note - Encounter Date of Encounter: 09/22/18 Time of Encounter: 09:03 - Subjective Interval History: Patient seen and examined at bedside this morning. Denies any new complaints. Denies dizziness, weakness, numbness, difficulty ambulating. She does admit to me that over the last couple of weeks she has noticed some intermittent blurred vision and a decline in functional capacity. This is likely continuing to increased falls. Additionally, there was some concerns overnight as to some left pupil irregularities but she reports that she has recently had surgery on her left eye due to cataracts and that his left pupil has been this way for quite some time. CT imaging of head unremarkable for acute pathology. - Exam Vitals: Temp Pulse Resp BP Pulse Ox 97.6 F 70 15 161/75 95 09/22/18 06:45 09/22/18 06:45 09/22/18 06:45 09/22/18 06:45 09/22/18 06:45 Exam: General: In no acute distress. Conversant. Obese. Respiratory exam: CTAB. no accessory muscle use, rales, rhonchi, wheezes Cardiovascular exam: RRR, +S1, +S2. no murmur, gallop, rubs. GI/Abdominal exam: Non-tender, Non-distended, normal bowel sounds, soft, no peritoneal signs. Extremities exam: full ROM, no pedal edema, warm, pulses palpable in b/l lower extremities. no calf tenderness Neurological exam: CN II-XII intact, AO X3, no focal sensory or motor deficits. Left pupil irregular, does not adjust to light appropriately, chronic Skin exam: No skin rash. Bruise/abrasion noted on face. - Assessment and Plan (1) Unsteady gait Current Visit: Yes Status: Acute Assessment and Plan: Reporting ataxia over the last few weeks with falls Also reporting a Decline in functional capacity over the last couple of weeks Due to ataxia and frequent falls neurology has been consulted and recommended MRI of cervical and lumbar spine B12 is 9:30, folate 8.2, TSH is 2.5-3 Negative for orthostasis PT/OT to see well and patient Up with assist only Plan is to DC to [facility]CF on Thursday for rehabilitation (2) GERD (gastroesophageal reflux disease) Current Visit: No Status: Chronic (3) Fall Current Visit: Yes Status: Acute Assessment and Plan: Mechanical fall with ataxia combined with weakness - has had multiple falls. As above (4) Nasal fracture Current Visit: Yes Status: Acute Assessment and Plan: s/p fall. ENT contacted from ED, will plan for outpatient follow up of nasal fracture. No urgent intervention needed per ENT (5) Accelerated hypertension Current Visit: Yes Status: Acute Assessment and Plan: Secondary to medication noncompliance Remains hypertensive this morning Home anti-HTN medications have been continued Patient is been hypertensive for months; slowly decrease BP Continue to monitor throughout the day and up titrate medications as necessary Continue when necessary hydralazine Code(s): I10 - Essential (primary) hypertension SNOMED Code(s): 80230777 (6) T2DM (type 2 diabetes mellitus) Current Visit: Yes Status: Acute Assessment and Plan: Per history Glucose well controlled Continue SSIC - Time Spent with Patient Total time spent is greater than 50% in coordination of care (as documented) at patient's floor/unit and/or counseling patient: less than 15 minutes Plan of Care Discussed with: patient Internal Medicine: Result - Labs CBC & Chem 7: 09/19/18 04:44 09/20/18 06:19 - Impressions Impressions Head CT 09/21/18 22:54 IMPRESSION: Grossly stable small vessel chronic ischemic changes without acute hemorrhage or definite evidence for acute ischemia. D/ / Lance Perdomo MD / Lance Perdomo MD Interpreting Provider: Lance Perdomo MD Consult Discharge Plan - Plan Referrals: Chris Christina DO [Primary Care Provider] - (2) GERD (gastroesophageal reflux disease) Qualifiers: Esophagitis presence: esophagitis presence not specified Qualified Code(s): K21.9 - Gastro-esophageal reflux disease without esophagitis (3) Fall Qualifiers: Encounter type: initial encounter Qualified Code(s): W19.XXXA - Unspecified fall, initial encounter (4) Nasal fracture Qualifiers: Encounter type: initial encounter Fracture type: closed Qualified Code(s): S02.2XXA - Fracture of nasal bones, initial encounter for closed fracture (6) T2DM (type 2 diabetes mellitus) Qualifiers: 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
--- NOTE | 2018-09-22 10:11 | Neurology - Consult Note ---
<Jovany Sanchez - Last Filed: 09/22/18 10:08> Date of Encounter: 09/22/18 Time of Encounter: 10:08 Assessment and Plan (1) Ataxia Current Visit: Yes Status: Acute 73-year-old female with increased frequency of falls in the past few month. Due to patient's frequent falls and ataxic gait we will Order MRI of the cervical spine, lumbar spine. B12 is 930, folate is 8.2, TSH is 2.523 Orthostatic vitals did not show a drop in systolic or diastolic blood pressure that would indicate orthostatic hypotension. Furthermore we will have PT/OT evaluate patient. (2) Frequent falls Current Visit: Yes Status: Acute (3) Coloboma of eye Current Visit: Yes Status: Acute Overnight patient was noted to have unequal pupils. 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 History of Present Illness Chief complaint: fall HPI: Ms. Liang is a 73 year old female presents with chief complaint of falling. Patient was visiting her granddaughter at [facility]. She was walking up a set of stairs (five steps total) when she reported after getting to the second step she fell forward. Neurology was consulted for frequent falls. Patient reports that she has been advised to use a walker/cane but has not been doing this as she likes to walk independently. However she has had multiple falls in the past. She denies lightheadedness, vertigo. She denies passing out during this episode. She fell face forward and bruised bilateral eyes, nose. Patient denies headache, blurry vision, double vision, confusion, difficulty swallowing, slurred speech, weakness, numbness, tingling, difficulty swallowing. Patient's daughter has noticed that she has an unsteady gait for the past several months. Patient's CT of the head, neck, were negative for acute changes. CT of the face showed displaced fractures of the superior nasal bones. Past Med Surg Social Fam HX - Past Medical History Medical history: arthritis, diabetes, GERD, hyperlipidemia, hypertension, other Additional medical history: upper and lower dentures Psychiatric history: anxiety, depression - Past Surgical History Surgical History: appendectomy, cholecystectomy, hysterectomy, orthopedic, other, pacemaker/AICD, other Additional surgical history: right knee replacement - Social History Smoking Status: Never smoker Smokeless Tobacco Status: No Alcohol use: none Drug use: none - Family History Mother Family Member Ethnicity: Non- Living Status: Father Family Member Ethnicity: Non- Living Status: Hx Family Endocrine Disorder: Yes (Cirrhosis) Sister Family Member Ethnicity: Non- Living Status: Hx Family Cancer: Yes (Uterine, Breast, Liver) Medications and Allergies Aspirin [Lo-Dose Aspirin EC] 81 mg PO DAILY 03/17/18 [History] Cholecalciferol (D-3) [Vitamin D] 1,000 unit PO DAILY 03/17/18 [History] Escitalopram [Lexapro] 20 mg PO DAILY 03/17/18 [History] Isosorbide MONOnitrate [Isosorbide Mononitrate ER] 150 mg PO DAILY 03/17/18 [History] Lactobacillus Acidophilus [Acidophilus Probiotic] 1 mg PO BID 03/17/18 [History] Lisinopril [Zestril] 40 mg PO BID 03/17/18 [History] Montelukast [Singulair] 10 mg PO DAILY 03/17/18 [History] Nabumetone [Relafen] 500 mg PO BID 03/17/18 [History] Omeprazole [PriLOSEC] 20 mg PO DAILY 03/17/18 [History] Simvastatin [Zocor] 40 mg PO HS 03/17/18 [History] Trazodone HCl 150 mg PO HS 03/17/18 [History] Vit A/Vit C/Vit E/Zinc/Copper [Preservision Areds Tablet] 1 tab PO DAILY 03/17/18 [History] metFORMIN [Glucophage] 250 mg PO BID 03/17/18 [History] Buspirone HCl [Buspar] 10 mg PO TID 09/18/18 [History] Fluticasone Propionate Nasal [Flonase] 1 spr NS DAILY 09/18/18 [History] Furosemide [Lasix] 20 mg PO BID 09/18/18 [History] Metoprolol Tartrate 100 mg PO BID 09/18/18 [History] BuPROPion XL (24 HR) [Wellbutrin XL] 150 mg PO DAILY 09/23/18 [History] Allergy/AdvReac Type Severity Reaction Status Date / Time Nortriptyline Allergy Severe Swelling Verified 09/18/18 09:33 of Lip/Tongue/Throat sertraline [From Zoloft] Allergy Swelling Verified 09/23/18 11:47 of Lip/Tongue/Throat adhesive tape AdvReac Rash Verified 09/23/18 11:21 fluoxetine [From Prozac] AdvReac Anxiety Verified 09/23/18 11:21 All Systems: The remainder of the systems were reviewed and are negative Review of Systems: Constitutional: Denies fever, chills HEENT: Denies headache, trauma, blurry vision, eye discharge, ear pain, ear discharge neck pain, sore throat, rhinorrhea Heart: Denies chest pain palpitations, LE edema Lungs: Denies shortness of breath cough Abdomen: Denies abdominal pain nausea vomiting diarrhea MSK: Denies back pain, reports right elbow pain, frequent falls Kidney: Denies dysuria, hematuria Skin: Denies rash, ulcers Neuro: As per history of present illness Psych: denies axniety, depression Physical Examination - Vital Signs Vital Signs: Initial Vital Signs Temp Pulse Resp BP Pulse Ox 97.4 F L 71 18 208/77 96 09/18/18 09:31 09/18/18 09:31 09/18/18 09:31 09/18/18 09:31 09/18/18 09:31 - Exam Exam: General: pleasant, without distress HEENT: Head atraumatic, normocephalic, EOMI, PERRL, absent ear discharge or trauma, Moist Mucous Membranes, uvula midline Neck: nontender to palpation, absent lymphadenopathy, Cardiovascualr: Regular rate and rhythm with no murmur, absent gallops or rubs, absent pedal edema, radial pulses 2 out of 4 Lungs: Clear to auscultation bilaterally, not in respiratory distress Abdomen: Soft nontender, nondistended positive bowel sounds, absent hepatomegaly Skin: warm and dry, absent rash, absent open wounds and nodules MSK: absent clubbing, cyanosis, joints without swelling Psych: Calm, poor insight. - Neurologic Sensorimotor examination: intact Detailed motor examination: grossly full strength in all extremities Motor examination - right side: 4/5: deltoids, biceps, triceps, wrist flexion, wrist extension, regrinder operator, hip flexors, tibialis Anterior, quadriceps, toe extension (EHL), plantarflexion Motor examination - left side: 4/5: deltoids, biceps, triceps, wrist flexion, wrist extension, hip flexors, regrinder operator, quadriceps, tibialis Anterior, toe extension (EHL), plantarflexion Detailed sensory examination: intact Reflex and gait examination: ataxic gate Reflexes: Biceps: 2+, Triceps: 2+, Brachioradialis: 2+, Patella: 2+ (Right knee replacement thus there is no reflux.), Achilles: 2+ Mental Status Examination: awake, alert, oriented to person, oriented to place, oriented to time, follows commands appropriately, answers questions appropriately, no agnosia, no aphasia, no aproxia Cranial nerve examination: PERRL, EOMI (Patient has a left eye coloboma from previous cataract surgery), visual johnson intact, sensory to face intact, mastication intact, no facial asymmetry is present, no dysarthria, hearing is intact symmetrically, soft palate elevates bilaterally upon phonation, flexes SCM and trapezius muscles symmetrically with full power, tongue protrudes midline, no atrophy or facial fasiculations present Cerebellar examination: no dysmetria, performs finger to nose and heel to coronel symmetrically without ataxia, no truncal ataxia, no difficulty with rapid alternating movements Results - Laboratory Findings CBC and BMP: 09/19/18 04:44 09/20/18 06:19 Abnormal lab findings: Abnormal lab results BUN/Creatinine Ratio 29 (6-26) H 09/20/18 06:19 Glucose 112 mg/dL (70-105) H 09/20/18 06:19 POC Glucose 153 mg/dL (70-99) H 09/21/18 20:59 Consult Discharge Plan - Plan Referrals: Chris Christina DO [Primary Care Provider] - <Keegan Crawford I - Last Filed: 09/23/18 15:27> Date of Encounter: 09/23/18 Assessment and Plan (1) Ataxia Current Visit: Yes Status: Acute Pt was seen and examined, my medical decision was reviewed with the Resident Physician, I agree with the documented findings, disposition and treatment plas as described except to the extent set forth below Patient who has an history of multiple fall without any focal neurological deficit on examination In particularly no evidence of any stroke on exam, at the same time no history or exam findings to be concerned of Parkinson disease she did have a slight decrease to the pinprick and lower extremities but seemed to be inconsistent perhaps she may have underlying peripheral neuropathy at that could certainly can contribute to the gait and balance dysfunction. She already had a blood work for vitamin B12 folate and TSH and also is been within normal limits. Continue to monitor for orthostatic and at the same time I suggest physical therapy evaluation and also MRI of the cervical and lumbar spine and particular ly to look for any cervical or lumbar stenosis that could be causing her to fall Keegan Crawford MD History of Present Illness HPI: Ms. Liang is a 73 year old female All Systems: The remainder of the systems were reviewed and are negative Physical Examination - Vital Signs Vital Signs: Initial Vital Signs Temp Pulse Resp BP Pulse Ox 97.4 F L 71 18 208/77 96 09/18/18 09:31 09/18/18 09:31 09/18/18 09:31 09/18/18 09:31 09/18/18 09:31 Results - Laboratory Findings CBC and BMP: 09/19/18 04:44 09/20/18 06:19 Abnormal lab findings: Abnormal lab results BUN/Creatinine Ratio 29 (6-26) H 09/20/18 06:19 Glucose 112 mg/dL (70-105) H 09/20/18 06:19 POC Glucose 153 mg/dL (70-99) H 09/21/18 20:59
[2018-09-22] MEDS: Insulin LISPRO 300 UNITS/3 ML VIAL SQ SCH ×4 (10:41→20:54)
[2018-09-22] MEDS: Fluticasone Propionate Nasal 50 MCG/SPRAY BOTTLE NS SCH (12:34)
[2018-09-22] MEDS ORDERED: Isovue-370 500 ML INFUS..BTL IV ONE (13:47)
[2018-09-22] MEDS: Artificial Tears SOLN 15 ML BOTTLE BOTH EYES SCH ×2 (17:25→19:59)
[2018-09-22] MEDS: traZODone 50 MG TABLET PO SCH (20:02)
[2018-09-22] MEDS ORDERED: Melatonin 3 MG TABLET PO ONE (23:43)
[2018-09-23] MEDS: *HR* Enoxaparin 40 MG/0.4 ML SYRINGE SQ SCH (05:55)
[2018-09-23] MEDS: Insulin LISPRO 300 UNITS/3 ML VIAL SQ SCH ×4 (08:20→21:17)
[2018-09-23] MEDS: BuPROPion SR (12 HR) 150 MG TABLET PO SCH (08:39)
[2018-09-23] MEDS: amLODIPine 5 MG TABLET PO SCH (08:39)
[2018-09-23] MEDS: Furosemide 20 MG TABLET PO SCH (08:39)
[2018-09-23] MEDS: Aspirin Enteric Coated 81 MG Tablet PO SCH (08:39)
[2018-09-23] MEDS: Artificial Tears SOLN 15 ML BOTTLE BOTH EYES SCH ×4 (08:39→21:15)
[2018-09-23] MEDS: Metoprolol 100 MG TABLET PO SCH ×2 (08:39→21:15)
[2018-09-23] MEDS: Lactobacillus 1 EACH CAP.SPRINK PO SCH ×2 (08:39→21:15)
[2018-09-23] MEDS: Lisinopril 20 MG TABLET PO SCH (08:39)
[2018-09-23] MEDS: Cholecalciferol (D-3) 1,000 UNIT TABLET PO SCH (08:39)
[2018-09-23] MEDS: Multivit/Ca/Min/Fe/FA 1 TAB TABLET PO SCH (08:39)
[2018-09-23] MEDS ORDERED: amLODIPine 5 MG TABLET PO ONE (09:04)
--- NOTE | 2018-09-23 09:08 | Internal Med Progress Note ---
Hospitalist Progress Note - Encounter Date of Encounter: 09/23/18 Time of Encounter: 11:48 - Subjective Interval History: Patient seen and examined at bedside this morning. Denies any new complaints. Tolerated physical therapy today - Exam Vitals: Temp Pulse Resp BP Pulse Ox 98.3 F 70 17 179/81 94 09/23/18 08:10 09/23/18 08:10 09/23/18 08:10 09/23/18 08:10 09/23/18 08:10 Exam: General: In no acute distress. Conversant. Obese. Respiratory exam: CTAB. no accessory muscle use, rales, rhonchi, wheezes Cardiovascular exam: RRR, +S1, +S2. no murmur, gallop, rubs. GI/Abdominal exam: Non-tender, Non-distended, normal bowel sounds, soft, no peritoneal signs. Extremities exam: full ROM, no pedal edema, warm, pulses palpable in b/l lower extremities. no calf tenderness Neurological exam: CN II-XII intact, AO X3, no focal sensory or motor deficits. Left pupil irregular (galindo hole), does not adjust to light appropriately, chronic Skin exam: No skin rash. Bruise/abrasion noted on face. - Assessment and Plan (1) Unsteady gait Current Visit: Yes Status: Acute Assessment and Plan: Reporting ataxia over the last few weeks with falls Also reporting a Decline in functional capacity over the last couple of weeks She has had a dramatic decrease in activity and there is a component of caregiver role strain as she is caring for her terminally ill Due to ataxia and frequent falls neurology has been consulted and recommended CT of cervical and lumbar spine C-spine CT unremarkable L-spine CT shows; Grade 1 spondylolisthesis at L5-S1 associated with B/L spondylolysis; otherwise no acute findings neuro does not recommend any additional w/u at this time B12 is 9:30, folate 8.2, TSH is 2.5-3 Negative for orthostasis Continue PT/OT while inpatient; tolerated well SBA with RW during ambulation Up with assist only Plan is to DC to ECF on Thursday for rehabilitation; fair rehab potential (2) GERD (gastroesophageal reflux disease) Current Visit: No Status: Chronic Assessment and Plan: continue PPI (3) Fall Current Visit: Yes Status: Acute Assessment and Plan: Mechanical fall with ataxia combined with weakness - has had multiple falls. treat As above (4) Nasal fracture Current Visit: Yes Status: Acute Assessment and Plan: s/p fall. ENT contacted from ED, will plan for outpatient follow up of nasal fracture. No urgent intervention needed per ENT (5) Accelerated hypertension Current Visit: Yes Status: Acute Assessment and Plan: Secondary to medication noncompliance Remains hypertensive this morning Home anti-HTN medications have been continued Patient is been hypertensive for months; slowly decrease BP Continue to monitor throughout the day and up titrate medications as necessary Continue when necessary hydralazine 09/23/18--HTN persists this morning. H/O non-compliance with anti-HTN meds. Increased Amlodipine today. BP improved. Continue to monitor Code(s): I10 - Essential (primary) hypertension SNOMED Code(s): 85185476 (6) T2DM (type 2 diabetes mellitus) Current Visit: Yes Status: Acute Assessment and Plan: Per history Glucose well controlled Continue SSIC - Time Spent with Patient Total time spent is greater than 50% in coordination of care (as documented) at patient's floor/unit and/or counseling patient: less than 15 minutes Plan of Care Discussed with: patient Internal Medicine: Result - Labs CBC & Chem 7: 09/19/18 04:44 09/20/18 06:19 - Impressions Impressions Cervical Spine CT 09/22/18 13:47 IMPRESSION: Stable exam with no evidence of acute traumatic injury to the cervical spine. D/ / Radha Bundy MD / Radha Bundy MD Interpreting Provider: Radha Bundy MD Lumbar Spine CT 09/22/18 13:47 IMPRESSION: Grade 1 spondylo listhesis at L5-S1 associated with bilateral spondylolysis. No acute findings. D/ / Nj Ornelas MD / Nj Ornelas MD Interpreting Provider: Nj Ornelas MD Consult Discharge Plan - Plan Referrals: Chris Christina, [Primary Care Provider] - (2) GERD (gastroesophageal reflux disease) Qualifiers: Esophagitis presence: esophagitis presence not specified Qualified Code(s): K21.9 - Gastro-esophageal reflux disease without esophagitis (3) Fall Qualifiers: Encounter type: initial encounter Qualified Code(s): W19.XXXA - Unspecified fall, initial encounter (4) Nasal fracture Qualifiers: Encounter type: initial encounter Fracture type: closed Qualified Code(s): S02.2XXA - Fracture of nasal bones, initial encounter for closed fracture (6) T2DM (type 2 diabetes mellitus) 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
--- NOTE | 2018-09-23 10:25 | Neurology Progress Note ---
<Jovany Sanchez - Last Filed: 09/23/18 10:20> Date of Encounter: 09/23/18 Time of Encounter: 10:20 Assessment and Plan (1) Ataxia Current Visit: Yes Status: Acute CT lumbar spine shows grade 1 spondylolisthesis at L5-S1 with bilateral spondylolysis. CT neck was negative for acute abnormalities. PT OT recommends placement to SNF for further rehabilitation. Patient reports significant back pain and may benefit from outpatient pain m anagement consult Plan: patient can be discharged to SNF. No further testing is needed. Neurology will sign off. Subjective Principal diagnosis: frequent falls Interval history: no acute events overnight. Patient is sitting in bed eating breakfast. Her was admitted overnight to the hospital and she is very concerned for him. Otherwise she has no complaints. Objective - Constitutional Vitals: Temp Pulse Resp BP Pulse Ox 98.3 F 70 17 179/81 94 09/23/18 08:10 09/23/18 08:10 09/23/18 08:10 09/23/18 08:10 09/23/18 08:10 - Neurological Exam Sensorimotor examination: Present: intact Motor Examination: Present: grossly full strength in all extremities Motor examination - right side: 4/5: deltoids, biceps, triceps, wrist flexion, wrist extension, head golf professional, hip flexors, tibialis Anterior, quadriceps, toe extension (EHL), plantarflexion Motor examination - left side: 4/5: deltoids, biceps, triceps, wrist flexion, wrist extension, hip flexors, head golf professional, quadriceps, tibialis Anterior, toe extension (EHL), plantarflexion Sensation intact: Present: intact Reflex and gait examination: ataxic gate Mental Status Examination: Present: awake, alert, oriented to person, oriented to place, oriented to time, follows commands appropriately, answers questions appropriately, no agnosia, no aphasia, no aproxia Cranial nerve examination: Present: PERRL, EOMI (Patient has a left eye coloboma from previous cataract surgery), visual johnson intact, sensory to face intact, mastication intact, no facial asymmetry is present, no dysarthria, hearing is intact symmetrically, soft palate elevates bilaterally upon phonation, flexes SCM and trapezius muscles symmetrically with full power, tongue protrudes midline, no atrophy or facial fasiculations present Cerebellar examination: Present: no dysmetria, performs finger to nose and heel to coronel symmetrically without ataxia, no truncal ataxia, no difficulty with rapid alternating movements Results - Laboratory Findings CBC and BMP: 09/19/18 04:44 09/20/18 06:19 Abnormal lab findings: Abnormal lab results BUN/Creatinine Ratio 29 (6-26) H 09/20/18 06:19 Glucose 112 mg/dL (70-105) H 09/20/18 06:19 POC Glucose 143 mg/dL (70-99) H 09/22/18 20:37 Consult Discharge Plan - Plan Referrals: Chris Christina DO [Primary Care Provider] - <Keegan Crawford I - Last Filed: 09/23/18 11:48> Date of Encounter: 09/23/18 Assessment and Plan (1) Ataxia Current Visit: Yes Status: Acute Pt was seen and examined, my medical decision was reviewed with the Resident Physician, I agree with the documented findings, disposition and treatment plas as described except to the extent set forth below. Unable to get an MRI because of the pacemaker No evidence of any stroke on CT scan of the head CT scan of the lumbar spine shows spondylosis without any critical stenosis but multilevel degenerative changes CT scan of the cervical spine did not show any critical stenosis Suspect this patient multiple falls are likely due to a combination off mechanical as well as orthopedic issues along with anxiety which is making the symptoms worse. Lab work including vitamin B12 folate TSH all were within normal limits She would probably benefit from short-term rehabilitation Okay to discharge from neurology standpoint Keegan Crawford MD Objective - Constitutional Vitals: Temp Pulse Resp BP Pulse Ox 97.8 F 70 19 142/80 93 09/23/18 11:37 09/23/18 11:37 09/23/18 11:37 09/23/18 11:37 09/23/18 11:37 Results - Laboratory Findings CBC and BMP: 09/19/18 04:44 09/20/18 06:19 Abnormal lab findings: Abnormal lab results BUN/Creatinine Ratio 29 (6-26) H 09/20/18 06:19 Glucose 112 mg/dL (70-105) H 09/20/18 06:19 POC Glucose 143 mg/dL (70-99) H 09/22/18 20:37
[2018-09-23] MEDS: Fluticasone Propionate Nasal 50 MCG/SPRAY BOTTLE NS SCH (17:01)
[2018-09-23] MEDS: traZODone 50 MG TABLET PO SCH (21:15)
[2018-09-24] MEDS: *HR* Enoxaparin 40 MG/0.4 ML SYRINGE SQ SCH (05:54)
[2018-09-24] MEDS: Insulin LISPRO 300 UNITS/3 ML VIAL SQ SCH (07:25)
[2018-09-24] MEDS: Fluticasone Propionate Nasal 50 MCG/SPRAY BOTTLE NS SCH (07:34)
[2018-09-24] MEDS: Cholecalciferol (D-3) 1,000 UNIT TABLET PO SCH (07:34)
[2018-09-24] MEDS: Lisinopril 20 MG TABLET PO SCH (07:34)
[2018-09-24] MEDS: Artificial Tears SOLN 15 ML BOTTLE BOTH EYES SCH (07:34)
[2018-09-24] MEDS: Lactobacillus 1 EACH CAP.SPRINK PO SCH (07:35)
[2018-09-24] MEDS: Aspirin Enteric Coated 81 MG Tablet PO SCH (07:35)
[2018-09-24] MEDS: Multivit/Ca/Min/Fe/FA 1 TAB TABLET PO SCH (07:35)
[2018-09-24] MEDS: Metoprolol 100 MG TABLET PO SCH (07:35)
[2018-09-24] MEDS: Furosemide 20 MG TABLET PO SCH (07:35)
[2018-09-24] MEDS ORDERED: BuPROPion XL (24 HR) 150 MG TABLET PO SCH (09:00)
[2018-09-24] MEDS ORDERED: amLODIPine 5 MG TABLET PO SCH (09:00)
--- NOTE | 2018-09-24 09:14 | Internal Med Progress Note ---
Hospitalist Progress Note - Encounter Date of Encounter: 09/24/18 Time of Encounter: 09:11 - Subjective Interval History: Patient seen and examined at bedside this morning. Denies any new complaints. Continues to report weakness and easy fatigability with activity. - Exam Vitals: Temp Pulse Resp BP Pulse Ox 97.6 F 69 24 162/79 94 09/24/18 07:08 09/24/18 08:03 09/24/18 07:08 09/24/18 08:03 09/24/18 07:08 Exam: General: In no acute distress. Conversant. Obese. A&O x3 Respiratory exam: CTAB. no accessory muscle use, rales, rhonchi, wheezes Cardiovascular exam: RRR, +S1, +S2. no murmur, gallop, rubs. GI/Abdominal exam: Non-tender, Non-distended, NABS, soft, nontender, no peritoneal signs. Extremities exam: full ROM, no pedal edema, warm, pulses palpable in b/l lower extremities. no calf tenderness Neurological exam: CN II-XII intact, AO X3, no focal sensory or motor deficits. Left pupil irregular (galindo hole), does not adjust to light appropriately, chronic, BLE strength improving Skin exam: No skin rash. Bruise/abrasion noted on face. - Assessment and Plan (1) Unsteady gait Current Visit: Yes Status: Acute Assessment and Plan: Reporting ataxia over the last few weeks with falls Also reporting a Decline in functional capacity over the last couple of weeks She has had a dramatic decrease in activity and there is a component of caregiver role strain as she is caring for her terminally ill Due to ataxia and frequent falls neurology has been consulted and recommended CT of cervical and lumbar spine C-spine CT unremarkable L-spine CT shows; Grade 1 spondylolisthesis at L5-S1 associated with B/L spondylolysis; otherwise no acute findings neuro does not recommend any additional w/u at this time B12 is 9:30, folate 8.2, TSH is 2.5 Negative for orthostasis Continue PT/OT while inpatient; tolerated well SBA with RW during ambulation Up with assist only Plan is to DC to ECF on Thursday for rehabilitation; fair rehab potential 09/24/18--Plan is to d/c to ECF for rehab this afternoon. Clinically, she remains stable, no acute changes in conditions. Strength appears to be improving but she is still easily fatigable and will continue to benefit from rehab. (2) GERD (gastroesophageal reflux disease) Current Visit: No Status: Chronic Assessment and Plan: continue PPI (3) Fall Current Visit: Yes Status: Acute Assessment and Plan: Mechanical fall with ataxia combined with weakness - has had multiple falls continuing treatment as above expect d/c this afternoon for rehab (4) Nasal fracture Current Visit: Yes Status: Acute Assessment and Plan: s/p fall. ENT contacted from ED, will plan for outpatient follow up of nasal fracture. No urgent intervention needed per ENT 09/24/18-- to f/u with ENT outpatient for fix of nasal fracture (5) Accelerated hypertension Current Visit: Yes Status: Acute Assessment and Plan: Secondary to medication noncompliance Remains hypertensive this morning Home anti-HTN medications have been continued Patient is been hypertensive for months; slowly decrease BP Continue to monitor throughout the day and up titrate medications as necessary Continue when necessary hydralazine 09/24/18--HTN persists this morning. H/o non-compliance with anti-HTN meds. Increased Amlodipine yesterday, restart Imdur at home dose. Continue to monitor. Code(s): I10 - Essential (primary) hypertension SNOMED Code(s): 42438563 (6) T2DM (type 2 diabetes mellitus) Current Visit: Yes Status: Acute Assessment and Plan: Per history Glucose well controlled Continue SSIC and adjust scale as needed - Time Spent with Patient Total time spent is greater than 50% in coordination of care (as documented) at patient's floor/unit and/or counseling patient: Internal Medicine: Result - Labs CBC & Chem 7: 09/19/18 04:44 09/20/18 06:19 Consult Discharge Plan - Plan Referrals: Maria Alejandra Ly CNP [Advanced Practice Nurse] - 10/06/18 1:00 pm Chris Christina DO [Primary Care Provider] - Tyson Sanchez MD [Partnered Physician] - 10/13/18 1:15 pm Ronda Cantrell DO [Partnered Physician] - 09/28/18 1:00 pm (2) GERD (gastroesophageal reflux disease) Qualifiers: Esophagitis presence: esophagitis presence not specified Qualified Code(s): K21.9 - Gastro-esophageal reflux disease without esophagitis (3) Fall Qualifiers: Encounter type: initial encounter Qualified Code(s): W19.XXXA - Unspecified fall, initial encounter (4) Nasal fracture Qualifiers: Encounter type: initial encounter Fracture type: closed Qualified Code(s): S02.2XXA - Fracture of nasal bones, initial encounter for closed fracture (6) T2DM (type 2 diabetes mellitus) Qualifiers: Diabetes mellitus level vial grinder insulin use: without level vial grinder use Diabetes patricia litus complication status: without complication Qualified Code(s): E11.9 - Type 2 diabetes mellitus without complications
[2018-09-24] MEDS ORDERED: ISOSORBIDE MONONITRATE PO SCH (09:30)
--- NOTE | 2018-09-24 09:43 | Discharge Summary ---
- NOTES TO OUTPATIENT PROVIDER Notes to Outpatient Provider: Admitted for multiple falls; found to have a decline in physical conditioning. Sent to ECF for short-term rehab. No pending studies at time of d/c. Orders not resulted at time of discharge: Pending orders 09/18/18 CT 3D reconstruction [CT] Routine 09/23/18 08:59 EKG [ECG 12 lead ECG] [ECG] Routine Date of Encounter: 09/24/18 Time of Encounter: 09:40 - Discharge Diagnosis (1) Unsteady gait Priority: Primary Status: Acute Assessment and Plan: to [facility] for short-term rehab (2) GERD (gastroesophageal reflux disease) Priority: Secondary Status: Chronic Qualifiers: Esophagitis presence: esophagitis presence not specified Qualified Code(s): K21.9 - Gastro-esophageal reflux disease without esophagitis (3) Fall Priority: Secondary Status: Acute Qualifiers: Encounter type: initial encounter Qualified Code(s): W19.XXXA - Unspecified fall, initial encounter (4) Nasal fracture Priority: Secondary Status: Acute Qualifiers: Encounter type: initial encounter Fracture type: closed Qualified Code(s): S02.2XXA - Fracture of nasal bones, initial encounter for closed fracture (5) Accelerated hypertension Priority: Secondary Status: Acute Assessment and Plan: resume home anti-HTN meds; added [facility] daily Code(s): I10 - Essential (primary) hypertension SNOMED Code(s): 96165263 (6) T2DM (type 2 diabetes mellitus) Priority: Secondary Status: Acute Qualifiers: 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 Liang is a 73 year old female due to multiple falls at home. During evaluation she was found to have a diminished functional capacity and was easily fatigable. Additionally, she is requiring use of a 4 wheeled walker and standby assist. PT/OT recommended SNF placement for short-term rehabilitation. She was found to be without neurological deficits. CT imaging of the C-spine and L-spine negative for acute pathology contributing to ambulatory dysfunction. Proceed with discharge to [facility] for short-term rehabilitation. Discharge discussed with: patient, nurse - Time Spent with Patient Total time spent providing and/or coordinating discharge services: Less than 30 minutes - Discharge Medications Prescriptions: amLODIPine [Norvasc] 10 mg PO DAILY 30 Days #60 tablet Lisinopril [Zestril] 40 mg PO DAILY 30 Days #60 tablet Home Medications: Aspirin [Lo-Dose Aspirin EC] 81 mg PO DAILY 03/17/18 [History] Cholecalciferol (D-3) [Vitamin D] 1,000 unit PO DAILY 03/17/18 [History] Escitalopram [Lexapro] 20 mg PO DAILY 03/17/18 [History] Isosorbide MONOnitrate [Isosorbide Mononitrate ER] 150 mg PO DAILY 03/17/18 [History] Lactobacillus Acidophilus [Acidophilus Probiotic] 1 mg PO BID 03/17/18 [History] Montelukast [Singulair] 10 mg PO DAILY 03/17/18 [History] Nabumetone [Relafen] 500 mg PO BID 03/17/18 [History] Omeprazole [PriLOSEC] 20 mg PO DAILY 03/17/18 [History] Simvastatin [Zocor] 40 mg PO HS 03/17/18 [History] Trazodone HCl 150 mg PO HS 03/17/18 [History] Vit A/Vit C/Vit E/Zinc/Copper [Preservision Areds Tablet] 1 tab PO DAILY 03/17/18 [History] metFORMIN [Glucophage] 250 mg PO BID 03/17/18 [History] Buspirone HCl [Buspar] 10 mg PO TID 09/18/18 [History] Fluticasone Propionate Nasal [Flonase] 1 spr NS DAILY 09/18/18 [History] Furosemide [Lasix] 20 mg PO BID 09/18/18 [History] Metoprolol Tartrate 100 mg PO BID 09/18/18 [History] BuPROPion XL (24 HR) [Wellbutrin Xl] 150 mg PO DAILY 09/23/18 [History] Lisinopril [Zestril] 40 mg PO DAILY 30 Days #60 tablet 09/24/18 [Rx] amLODIPine [Norvasc] 10 mg PO DAILY 30 Days #60 tablet 09/24/18 [Rx] Allergies/Adverse Reactions: Allergy/AdvReac Type Severity Reaction Status Date / Time Nortriptyline Allergy Severe Swelling Verified 09/18/18 09:33 of Lip/Tongue/Throat sertraline [From Zoloft] Allergy Swelling Verified 09/23/18 11:47 of Lip/Tongue/Throat adhesive tape AdvReac Rash Verified 09/23/18 11:21 fluoxetine [From Prozac] AdvReac Anxiety Verified 09/23/18 11:21 Date of admission: 09/21/18 09:05 Primary care physician: Chris Christina Consults: 09/18/18 15:09 Consult to Physical Therapy [CONS] Routine Comment: Evaluate, develop and implement POC Reason for Consult: s/p fall Does patient have active BEDREST order?: No Is patient medically & hemodynamically stable?: Yes 09/18/18 15:11 Consult to Occupational Therapy [CONS] Routine Comment: Evaluate, develop and implement POC Reason for Consult: s/p fall Does patient have active BEDREST order?: No Is patient medically & hemodynamically stable?: Yes 09/18/18 15:52 Consult to Nutrition [CONS] Routine Comment: Consulting Provider: NUTRITION Reason for Dietary Consult: MST Score Consult to Pastoral Services [CONS] Routine Comment: Consult to Prune Washer [CONS] Routine Reason for SW Consult: Patient previously being evaluated for [facility] care. Possible need for home health care on discharge 09/20/18 16:19 Consult to ENT [CONS] Routine Consulting Provider: E[facility] [place] Reason for Consult: Displaced fractures of the superior nasal bones.. Time Notified: 16:20 Call Completed: Yes 09/21/18 15:44 Consult to Neurology [CONS] Routine Consulting Provider: Neurology [facility] Reason for Consult: recurrent falls Call Completed: Yes Discharging clinician: Noble Martienz Anticipated date of discharge: 09/24/18 - Constitutional Vitals: Temp Pulse Resp BP Pulse Ox 97.6 F 69 24 162/79 94 09/24/18 07:08 09/24/18 08:03 09/24/18 07:08 09/24/18 08:03 09/24/18 07:08 General appearance: Present: A&O X 3, no acute distress Exam: General: In no acute distress. Conversant. Obese. A&O x3 Respiratory exam: CTAB. no accessory muscle use, rales, rhonchi, wheezes Cardiovascular exam: RRR, +S1, +S2. no murmur, gallop, rubs. GI/Abdominal exam: Non-tender, Non-distended, NABS, soft, nontender, no peritoneal signs. Extremities exam: full ROM, no pedal edema, warm, pulses palpable in b/l lower extremities. no calf tenderness Neurological exam: CN II-XII intact, AO X3, no focal sensory or motor deficits. Left pupil irregular (galindo hole), does not adjust to light appropriately, chronic, BLE strength improving Skin exam: No skin rash. Bruise/abrasion noted on face. - Patient Status Disposition: Transfer SNF Condition: Good Overall status at discharge: patient is not back to baseline - Discharge Instructions Instructions: Chronic Hypertension (DC), Fall Prevention (DC) Follow Up With: Maria Alejandra Ly CNP [Advanced Practice Nurse] - 10/06/18 1:00 pm Chris Christina DO [Primary Care Provider] - Tyson Sanchez MD [Partnered Physician] - 10/13/18 1:15 pm Ronda Cantrell DO [Partnered Physician] - 09/28/18 1:00 pm - Diet and Activity Activity: as per physical therapy, increase activity as tolerated, resume usual activities as tolerated Diet: diabetic diet, low fat, low cholesterol, low salt diet
--- NOTE | 2018-09-24 09:57 | Physician Discharge Referral ---
ExtendedCare Referral Info Transfer To: [facility] Provider in Charge after Transfer: PCP Institutional Level of Care: Intermediate - Diagnosis (1) Unsteady gait Priority: Primary Status: Acute (2) GERD (gastroesophageal reflux disease) Priority: Secondary Status: Chronic (3) Fall Priority: Secondary Status: Acute (4) Nasal fracture Priority: Secondary Status: Acute (5) Accelerated hypertension Priority: Secondary Status: Acute (6) T2DM (type 2 diabetes mellitus) Priority: Secondary Status: Acute (7) [place]ob[place] of eye Priority: Secondary Status: Acute Prognosis: Good Aware of Diagnosis: Patient Aware of Prognosis: Patient - Transfer Medications Prescriptions: amLODIPine [Norvasc] 10 mg PO DAILY 30 Days #60 tablet Lisinopril [Zestril] 40 mg PO DAILY 30 Days #60 tablet Home Medications: Aspirin [Lo-Dose Aspirin EC] 81 mg PO DAILY 03/17/18 [History] Cholecalciferol (D-3) [Vitamin D] 1,000 unit PO DAILY 03/17/18 [History] Escitalopram [Lexapro] 20 mg PO DAILY 03/17/18 [History] Isosorbide MONOnitrate [Isosorbide Mononitrate ER] 150 mg PO DAILY 03/17/18 [History] Lactobacillus Acidophilus [Acidophilus Probiotic] 1 mg PO BID 03/17/18 [History] Montelukast [Singulair] 10 mg PO DAILY 03/17/18 [History] Nabumetone [Relafen] 500 mg PO BID 03/17/18 [History] Omeprazole [PriLOSEC] 20 mg PO DAILY 03/17/18 [History] Simvastatin [Zocor] 40 mg PO HS 03/17/18 [History] Trazodone HCl 150 mg PO HS 03/17/18 [History] Vit A/Vit C/Vit E/Zinc/Copper [Preservision Areds Tablet] 1 tab PO DAILY 03/17/18 [History] metFORMIN [Glucophage] 250 mg PO BID 03/17/18 [History] Buspirone HCl [Buspar] 10 mg PO TID 09/18/18 [History] Fluticasone Propionate Nasal [Flonase] 1 spr NS DAILY 09/18/18 [History] Furosemide [Lasix] 20 mg PO BID 09/18/18 [History] Metoprolol Tartrate 100 mg PO BID 09/18/18 [History] BuPROPion XL (24 HR) [Wellbutrin Xl] 150 mg PO DAILY 09/23/18 [History] Lisinopril [Zestril] 40 mg PO DAILY 30 Days #60 tablet 09/24/18 [Rx] amLODIPine [Norvasc] 10 mg PO DAILY 30 Days #60 tablet 09/24/18 [Rx] Allergies/Adverse Reactions: Allergy/AdvReac Type Severity Reaction Status Date / Time Nortriptyline Allergy Severe Swelling Verified 09/18/18 09:33 of Lip/Tongue/Throat sertraline [From Zoloft] Allergy Swelling Verified 09/23/18 11:47 of Lip/Tongue/Throat adhesive tape AdvReac Rash Verified 09/23/18 11:21 fluoxetine [From Prozac] AdvReac Anxiety Verified 09/23/18 11:21 - Respiratory Orders Smoking Cessation: Smoking cessation has been advised. For more information, call the [place] Tobacco Quit Line at 6-618-YBOK-NOW. - Advance Directives Code Status: Full Code - Rehabiliation Orders Rehab Orders: ROM Exercises, Evaluation for Physical Therapy, Evaluation for Occupational Therapy - Diet Orders No Added Salt (KATEY), No Concentrated Sweets, Cardiac CERTIFICATION: I certify that the transfer of the above named patient to an Extended Care Facility is necessary for the continuing treatment of the diagnosis listed. The above information is true and accurate reflection of patient's current condition. Confidential - Redisclosure prohibited without a patient's written consent.
[2018-09-24 10:53] VITALS: BP 169/80
--- NOTE | 2018-09-26 08:36 | Electrocardiograph Report ---
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
== END 2018-09-24 12:29 | DRG 155 ==
LOC: EMEROOARM 09:28 → 3NENU 09:28 → SUATTDRO 13:22 → 3NENU 13:58 → 3BNU 09-21 06:30
PROVIDERS: ADMIT Internal Medicine; ATTEND Internal Medicine